=== PATIENT | male | born 1960 | race Caucasian/White ===

== ENCOUNTER 2016-11-27 16:54 | Inpatient (IN) ==
[2016-11-27] MEDS ORDERED: D50W SYRINGE IV ONE ×3 (17:15→23:14)
[2016-11-27] MEDS ORDERED: ASPIRIN PO STA (17:21)
[2016-11-27] MEDS ORDERED: D5W 1,000 ML IV ONE (17:28)
[2016-11-27] MEDS ORDERED: LASIX IV ONE (17:36)
[2016-11-27 17:37] LABS: MANUAL DIFF NEEDED? NO
--- NOTE | 2016-11-27 17:38 | PROVIDER DOCUMENTATION ---
This chart was entered by Pamela Cobian Scribe, acting as scribe for Kiko Lopez MD. HPI-General Adult - General Source: patient, EMS - History of Present Illness -Gen Adult Nature of Presenting Problems: 56 yo M presents to the ER with complaint of low blood sugar and "falling out" last night and this morning. Also complains of SOb x2 days. FSBS upon arrival was 38. Pt states he took metformin this morning but has not eaten anything today. Onset/Duration: reports: 2 days ago Associated Symptoms: reports: shortness of breath, syncope. denies: chest pain - Diabetes Related Context Context: reports: low blood sugar <Kiko Lopez I - Last Filed: 11/27/16 17:37> - General Source: patient <Bob Lindsey - Last Filed: 11/27/16 20:50> - General Chief Complaint: Shortness of Breath Stated Complaint: sob hypoglycemia Time Seen by Provider: 11/27/16 17:19 Allergies/Adverse Reactions: Patient Allergies Allergy/AdvReac Type Severity Reaction Status Date / Time ibuprofen Allergy Severe ANAPHYLAXIS Verified 11/27/16 17:06 venom-honey bee Allergy ANAPHYLAXIS Verified 11/27/16 17:06 [bee venom (honey bee)] Home Medications: Home Medication List Medication Instructions Recorded Confirmed Last Taken Type Cyclobenzaprine [Flexeril] 10 mg PO TID 12/05/12 10/10/16 10/09/16 History Glimepiride [Amaryl] 4 mg PO BID 12/05/12 10/10/16 10/09/16 History Metformin [Glucophage] 1,000 mg PO BID CC 12/05/12 10/10/16 10/09/16 History Omeprazole 40 mg PO DAILY 02/01/14 10/10/16 10/09/16 History Rivaroxaban [Xarelto] 20 mg PO DAILY 02/01/14 10/10/16 10/09/16 History Tamsulosin [Flomax] 0.4 mg PO DAILY 02/01/14 10/10/16 10/09/16 History Carvedilol [Coreg] 25 mg PO Q12H #0 tablet 02/09/14 10/10/16 10/09/16 Rx Diltiazem HCl [Diltiazem 12Hr ER] 120 mg PO DAILY #30 02/09/14 10/10/16 Rx Isosorbide Mononitrate E.r. [Imdur] 30 mg PO DAILY #30 tablet 02/09/14 10/10/16 10/09/16 Rx Losartan [Cozaar] 25 mg PO DAILY #30 tablet 02/09/14 10/10/16 10/09/16 Rx Metolazone [Zaroxolyn] 5 mg PO DAILY@0530 #30 tablet 02/09/14 10/10/16 10/09/16 Rx Spironolactone [Aldactone] 25 mg PO DAILY #0 tablet 02/09/14 10/10/16 10/09/16 Rx Rizatriptan Benzoate [Maxalt [employer] Super[employer]] 10 mg PO DAILY PRN PRN #10 12/30/14 10/10/16 10/09/16 Rx tab.rapdis Fentanyl 1 each TD DIRECTED 09/01/16 10/10/16 10/09/16 History Furosemide [Lasix] 80 mg PO BID 10/10/16 10/10/16 10/09/16 History Potassium Chloride E.r. [Micro-K] 24 meq PO TID 10/10/16 10/10/16 10/09/16 History Review of Systems - Adult - REVIEW OF SYSTEMS - ADULT Constitutional: denies: chills, fever Eyes: reports: no symptoms reported Ears, Nose, Mouth & Throat: reports: no symptoms reported Cardiovascular: denies: chest pain, palpitations Respiratory: reports: shortness of breath. denies: cough, wheezing Gastrointestinal: denies: diarrhea, nausea, vomiting Genitourinary: reports: no symptoms reported Musculoskeletal: reports: no symptoms reported Integumentary: reports: no symptoms reported Neurological: reports: no symptoms reported Psychiatric: reports: no symptoms reported Endocrine: reports: no symptoms reported Hematologic/Lymphatic: reports: no symptoms reported Allergic/Immunologic: reports: no symptoms reported All Other Systems: Reviewed and Negative <Kiko Lopez I - Last Filed: 11/27/16 17:37> - REVIEW OF SYSTEMS - ADULT Constitutional: reports: no symptoms reported <Bob Lindsey - Last Filed: 11/27/16 20:50> Past History - Adult - PAST MEDICAL HISTORY-ADULT Review of Records: reports: Nursing Assessment Review, Medications Reviewed Cardiovascular: reports: A-Fib, CHF, HTN Respiratory: reports: COPD, sleep apnea Musculoskeletal: reports: chronic pain Endocrine/Immune: reports: Diabetes - PRIOR SURGERIES/PROCEDURES Surgical/Procedure History: reports: reviewed, not pertinent - PRIOR HOSPITALIZATIONS Prior Hospitalizations: reports: for similar symptoms - IMMUNIZATION STATUS Childhood Immunizations: See Nurse Assessment Flu Vaccine: See Nurse Assessment <Kiko Lopez I - Last Filed: 11/27/16 17:37> - PAST MEDICAL HISTORY-ADULT Review of Records: reports: Medications Reviewed <Bob Lindsey - Last Filed: 11/27/16 20:50> Physical Exam-General - PHYSICAL EXAM-ADULT Initial Vital Signs Reviewed: Yes - CONSTITUTIONAL General Appearance: alert, obese - EYES Eyes: PERRL/EOMI, pink conjunctivae - HEAD, EARS, NOSE, MOUTH & THROAT HENMT: normocephalic/atraumatic, normal ENT inspection - NECK Neck: supple, normal inspection - RESPIRATORY Respiratory: no respiratory distress, no accessory muscle use, rales, wheezing - CARDIOVASCULAR Cardiovascular: normal peripheral pulses, regular rate, rhythm. negative: no edema - GASTROINTESTINAL (ABDOMEN) Abdominal Exam: normal bowel sounds, non tender, soft - MUSCULOSKELETAL Back Exam: no CVA tenderness, no vertebral tenderness Extremity: normal gait, normal inspection, swelling (+4 pitting edema, anasarca) - SKIN Integumentary: normal color, warm/dry, other (anasarca) - NEUROLOGIC Neurologic: grossly normal, no motor/sensory deficits - PSYCHIATRIC Psych/Mental Status: normal mood/affect, normal thought content, normal thought process, oriented x 3 <Kiko Lopez I - Last Filed: 11/27/16 17:37> - PHYSICAL EXAM-ADULT Initial Vital Signs Reviewed: Yes - CONSTITUTIONAL General Appearance: appears well <Bob Lindsey - Last Filed: 11/27/16 20:50> Progress - PLAN OF CARE/RESULTS Progress/Plan/Lab Results: Vital Signs - 8 hr 11/27/16 17:04 Temperature 98 F Pulse Rate 93 H Respiratory Rate 19 Blood Pressure 121/93 O2 Sat by Pulse Oximetry 100 Orders Category Date Time Status Cardiac Monitoring DIRECTED Care 11/27/16 17:21 Active Oxygen Therapy- ED Nursing DIRECTED Care 11/27/16 17:21 Active Saline Loc NOW Care 11/27/16 17:21 Active CHEST-2 VIEWS [RAD] Stat Exams 11/27/16 17:21 Ordered CBC WITH ELECTRONIC DIFF [HEME] Stat Lab 11/27/16 17:25 Ordered CK PROFILE [SP CHEM] Stat Lab 11/27/16 17:25 Ordered COMPREHENSIVE METABOLIC PANEL [CHEM] Stat Lab 11/27/16 17:25 Ordered MAGNESIUM [CHEM] Stat Lab 11/27/16 17:25 Ordered PRO B-NATRIURETIC PEPTIDE Stat Lab 11/27/16 17:25 Ordered PROTIME WITH INR [COAG] Stat Lab 11/27/16 17:25 Ordered PTT [COAG] Stat Lab 11/27/16 17:25 Ordered TROPONIN T Stat Lab 11/27/16 17:25 Ordered Aspirin Med 11/27/16 17:21 Discontinued 325 mg PO STAT STA Dextrose 5%-Water Inj [D5w] 1,000 ml Med 11/27/16 17:28 Discontinued IV KVO Dextrose 50% Syringe [D50w Syringe] Med 11/27/16 17:19 Discontinued 50 ml IV NOW ONE Dextrose 50% Syringe [D50w Syringe] Med 11/27/16 17:15 Discontinued 50 ml IV ONCE ONE EKG [EKG] Stat Ther 11/27/16 17:21 Ordered Result Diagrams: 11/27/16 17:10 - EKG 1 Time of EKG reading by physician:: 16:59 EKG Read and Signed by:: Kiko Lopez EKG Interpretation (*Must complete 3 of following elements*): Abnormal Rate: 92 Rhythm: atrial fibrillation [place]: normal QRS: LBB MS Interval: normal ST Wave: normal - CHANGE OF SHIFT REPORT (ED Provider) Report Given and Care Transferred to:: Dr. Lindsey Time of Transfer: 18:00 Items Pending: Labs, XRAY Results <Kiko Lopez I - Last Filed: 11/27/16 17:37> - PLAN OF CARE/RESULTS Progress/Plan/Lab Results: Vital Signs - 8 hr 11/27/16 17:04 11/27/16 18:09 11/27/16 19:00 Temperature 98 F Pulse Rate 93 H 84 100 H Respiratory Rate 19 19 18 Blood Pressure 121/93 155/135 117/95 O2 Sat by Pulse Oximetry 100 92 L 99 Laboratory Results - last 24 hr 11/27/16 11/27/16 11/27/16 17:10 17:10 17:10 WBC 9.39 RBC 3.39 L Hgb 8.7 L Hct 28.7 L MCV 84.7 MCH 25.7 L MCHC 30.3 L RDW Std Deviation 14.8 H Plt Count 236 MPV 10.2 Immature Gran % (Auto) 0.4 Neut % (Auto) 72.8 Lymph % (Auto) 14.2 L [place] % (Auto) 8.4 Eos % (Auto) 3.2 Baso % (Auto) 1.0 H Immature Gran # (Auto) 0.04 Neut # (Auto) 6.84 H Lymph # (Auto) 1.33 [place] # (Auto) 0.79 H Eos # (Auto) 0.30 Baso # (Auto) 0.09 PT INR PTT (Actin FS) Sodium 136 Potassium 3.8 Chloride 92 L Carbon Dioxide 29 Anion Gap 15 BUN 33 H Creatinine 1.8 H Estimated GFR/1.73 m2 39 BUN/Creatinine Ratio 18 Glucose 31 L* Calculated Osmolality 275 Calcium 9.9 Magnesium 1.6 Total Bilirubin 0.32 AST 32 ALT 24 Alkaline Phosphatase 115 Creatine Kinase 140 Troponin T Hzt-O-Ocyitensnof Pept 1551 H Total Protein 7.5 Albumin 4.5 Globulin 3.0 Albumin/Globulin Ratio 1.5 11/27/16 11/27/16 17:10 17:10 WBC RBC Hgb Hct MCV MCH MCHC RDW Std Deviation Plt Count MPV Immature Gran % (Auto) Neut % (Auto) Lymph % (Auto) [place] % (Auto) Eos % (Auto) Baso % (Auto) Immature Gran # (Auto) Neut # (Auto) Lymph # (Auto) [place] # (Auto) Eos # (Auto) Baso # (Auto) PT 12.0 H INR 1.13 PTT (Actin FS) 28.5 Sodium Potassium Chloride Carbon Dioxide Anion Gap BUN Creatinine Estimated GFR/1.73 m2 BUN/Creatinine Ratio Glucose Calculated Osmolality Calcium Magnesium Total Bilirubin AST ALT Alkaline Phosphatase Creatine Kinase Troponin T < 0.010 Cnh-J-Jgvksijrscs Pept Total Protein Albumin Globulin Albumin/Globulin Ratio Orders Category Date Time Status Cardiac Monitoring DIRECTED Care 11/27/16 17:21 Active Oxygen Therapy- ED Nursing DIRECTED Care 11/27/16 17:21 Active Saline Loc NOW Care 11/27/16 17:21 Active CHEST-PORTABLE [RAD] Stat Exams 11/27/16 17:21 Completed CBC WITH ELECTRONIC DIFF [HEME] Stat Lab 11/27/16 17:10 Completed CK PROFILE [SP CHEM] Stat Lab 11/27/16 17:10 Completed COMPREHENSIVE METABOLIC PANEL [CHEM] Stat Lab 11/27/16 17:10 Completed MAGNESIUM [CHEM] Stat Lab 11/27/16 17:10 Completed PRO B-NATRIURETIC PEPTIDE Stat Lab 11/27/16 17:10 Completed PROTIME WITH INR [COAG] Stat Lab 11/27/16 17:10 Completed PTT [COAG] Stat Lab 11/27/16 17:10 Completed TROPONIN T Stat Lab 11/27/16 17:10 Completed Aspirin Med 11/27/16 17:21 Discontinued 325 mg PO STAT STA Dextrose 5%-Water Inj [D5w] 1,000 ml Med 11/27/16 17:28 Discontinued IV KVO Dextrose 50% Syringe [D50w Syringe] Med 11/27/16 17:19 Discontinued 50 ml IV NOW ONE Dextrose 50% Syringe [D50w Syringe] Med 11/27/16 17:15 Discontinued 50 ml IV ONCE ONE Furosemide [Lasix] Med 11/27/16 17:36 Discontinued 100 mg IV NOW ONE EKG [EKG] Stat Ther 11/27/16 17:21 Ordered Result Diagrams: 11/27/16 17:10 11/27/16 17:10 - XRAY 1 XRAY Study: Chest Impression: Abnormal XRAY Interpretation: stable cardiomegaly and PVC - CONSULTS/PCP/HOSPITALIST Notification #1 *Consult/PCP/Hospitalist*: [place] Time Discussed: 20:00 Consult Disposition: Will see in ED, Admit <Bob Lindsey - Last Filed: 11/27/16 20:50> Departure <Kiko Lopez I - Last Filed: 11/27/16 17:37> - Departure Date of Disposition Decision: 11/27/16 Time of Disposition Decision: 20:03 Certified Medical Emergency: Emergent - Critical Care Note This patient required my direct & personal management of CC.: No <Bob Lindsey - Last Filed: 11/27/16 20:50> - Departure DIAGNOSIS: Hypoglycemia CHF (congestive heart failure) Qualifiers: Congestive heart failure type: unspecified congestive heart failure type Congestive heart failure chronicity: acute on chronic Qualified Code(s): I50.9 - Heart failure, unspecified Hypertension Qualifiers: Hypertension type: essential hypertension Qualified Code(s): I10 - Essential ( primary) hypertension Disposition: ADMITTED INPATIENT 09 Condition: Good Referrals and Follow-Ups: Yusef Gonzalez MD [Primary Care Provider] - This chart was documented by the indicated scribe, (Pamela Cobian Scribe) and accurately reflects the services I performed and decisions made by Jessica joseph Christophe I, MD, as attested by the provider's signature.
[2016-11-27 17:43] LABS: EOS% 3.2 % (0.0-10.0); HEMATOCRIT 28.7 % (42.0-52.0); HEMOGLOBIN 8.7 g/dL (14.0-18.0); IMM GRAN# 0.04 X1000 (0.0-0.04); IMM GRAN% 0.4 % (0.0-0.5); LYMPH# 1.33 X1000 (1.2-3.4); LYMPH% 14.2 % (20.5-51.1); MCH 25.7 PG (27-31); MCHC 30.3 g/dL (33-37); MCV 84.7 FL (81-99); MONO# 0.79 X1000 (0.11-0.59); MONO% 8.4 % (1.7-9.3); MPV 10.2 FL (7.4-10.4); NEUT% 72.8 % (42.2-75.2); PLT 236 X1000 (130-400); RBC 3.39 XMIL (4.7-6.1)
[2016-11-27 17:53] LABS: INR 1.13; PTT 28.5 Seconds (22.0-36.0)
--- NOTE | 2016-11-27 18:16 | Diag Imaging Result Doc PS360 ---
CHEST-PORTABLE - 11/27/2016 INDICATION: CP TECHNIQUE: COMPARISON: 10/10/2016 FINDINGS: Stable significant cardiomegaly and pulmonary vascular congestion. No definite infiltrates or edema. IMPRESSION: Stable severe cardiomegaly and pulmonary vascular congestion. Electronically signed by Deepak Rivera 11/27/2016 6:14 PM
[2016-11-27 18:21] LABS: ALBUMIN 4.5 g/dL (3.5-5.0); CALCIUM 9.9 mg/dL (8.8-10.2); MAGNESIUM 1.6 mg/dL (1.5-2.7); POTASSIUM 3.8 mmol/L (3.5-5.1); TOTAL BILIRUBIN 0.32 mg/dL (0.20-1.00); TOTAL PROTEIN 7.5 g/dL (6.3-8.3)
[2016-11-27 22:50] LABS: URINE MICRO REVIEW NEEDED? NO; URINE SOURCE CATH
--- NOTE | 2016-11-27 22:51 | HISTORY AND PHYSICAL ---
Patient of Dr. Gonzalez. REASON FOR ADMISSION: A 2-day history of worsening dyspnea. HISTORY OF PRESENT ILLNESS: Mr. Silvana Alarcon is a 56-year-old morbidly obese man patient past medical history of chronic atrial fibrillation, heart failure with preserved ejection fraction, hypertensive heart disease, type 2 diabetes, obstructive sleep apnea, probable atrial fibrillation BPH who comes in today complaining of 2-day history of worsening shortness of breath with 1-day history of orthopnea. He also complains of persistent cough over the last couple of days and a 3-day history of sore throat with odynophagia. No fever, no chills. He states that he has had chronic lower extremity swelling but this has not gotten worse but has noticed that his abdomen has become more and more distended with cutaneous edema. He denies any chest pain or palpitations or lightheadedness. He denies any calf pain. He denies any change in his medications. He denies any use of NSAIDs and says has been compliant with his diet. REVIEW OF SYSTEMS: A 12 system is negative. Positive findings noted above. No additional upper respiratory symptoms. No fever or chills. No altered bowel movements. He does admit however to having genitourinary discomfort i.e. hesitancy and difficulty straining his urine and eye says he seen Dr. Guerrero for this. ALLERGIES: He is allergic to ibuprofen . HOME MEDICATION: List not updated yet but he was taking Coreg 25 mg q.12, Flexeril 10 mg t.i.d., Cardizem 120 mg daily, fentanyl patch q.72, Lasix 80 mg b.i.d., Amaryl 4 mg b.i.d., Imdur 30 mg daily, losartan 25 mg daily, metformin 1000 mg b.i.d., Zaroxolyn 5 mg daily, omeprazole 40 mg daily, potassium 20 mEq t.i.d., Xarelto 20 mg daily, Maxalt 10 mg daily, Aldactone 25 mg daily, Flomax 0.4 mg daily. SURGICAL HISTORY: Has had 5 knee surgeries, had tonsillectomy, septoplasty and right Achilles tendon repair. PAST MEDICAL HISTORY: See above including atrial fibrillation. FAMILY HISTORY: Notable for diabetes, prostate cancer, bladder cancer, end- stage kidney disease in the first-degree relatives, coronary artery disease and strokes. SOCIAL HISTORY: Lives with a friend. Has no children. Used to work for [employer] and he says he only drinks maybe a couple of beers a week. No smoking, illicit drug use . LAB WORK: EKG shows atrial fibrillation, left bundle branch block. White count 9000, hemoglobin and hematocrit 8 and 27, platelets 236,000, normal differential. Chemistry BUN 33, creatinine 1.8, baseline 1.5, glucose 31. Troponin negative, proBNP 1500. PTT is normal. Chest x-ray shows cardiomegaly with increased vascular markings. PHYSICAL EXAMINATION: VITAL SIGNS: Morbidly obese male, with a blood pressure 144/110, heart rate is 29 temperature is 98, pulse rate is 109. GENERAL: He is alert and oriented to person, time with normal mood and affect. HEENT: Head is normocephalic, atraumatic. PERRLA, EOMI intact not pale, oropharynx exam shows hyperemic erythematous posterior pharyngeal wall with no exudates. 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 NECK: Short and thick. No JVD could be appreciated. No bruit or thyromegaly. No hepatojugular reflux visualized. CHEST: Surprisingly clear to auscultation with decreased entry in the bases. CARDIOVASCULAR: 1st, 2nd heart sounds heard. No gallops, murmurs, rubs. Rhythm is irregular. ABDOMEN: Protuberant, soft with superficial pitting subcutaneous edema on the anterior abdominal wall. No mass or megaly could be appreciated and bowel sounds are hypoactive. RECTAL: Exam deferred. : The patient has swollen scrotum with 2 chronic ulcers which are non necrotic. He also has some significant scrotal swelling which is consistent with possible scrotal hydrocele. EXTREMITIES: Patient has findings consistent in the lower extremity with chronic venous insufficiency. There are areas of significant hyperpigmentation and induration of the shins with 1+ pitting edema. No erythema or warmth noted. Pulses distally lower extremities are symmetrical but diminished compared to the distal pulses of the upper extremity. No clubbing or peripheral cyanosis. Motor system no focal deficits. SKIN: See above but otherwise unremarkable. MUSCULOSKELETAL: Exam is grossly normal. ASSESSMENT: 1. Acute diastolic heart failure. 2. Atrial fibrillation. 3. Hypoglycemia. 4. Anemia of chronic inflammation. 5. Type 2 diabetes with chronic kidney disease. 6. Chronic kidney disease stage 3. 7. Morbid obesity with sleep apnea. 8. Prostatism ? benign prostatic hypertrophy . 9. Hydrocele. 10. Scrotal ulcer. PLAN: At this time will continue the aggressive diuresis. The patient will need to ascertain if patient truly compliant with medication and BiPAP machine. Will consider at discharge maybe increasing dose to 80 mg 3 times a day or at very least 100 mg b.i.d. Echocardiogram will be ordered to see if patient's LV function has been altered. Continue with anticoagulation with Xarelto and rate control with Coreg. I held Cardizem because patient's heart rate was in the 60s. BMP should be followed closely during the process of the patient's process of diuresis. Check A1c and consider discontinuing or decrease Amaryl if patient's A1c is on the low side due to the fact that he had profound hypoglycemia on admission. Also another reason why we need to cut the dose because of patient's renal function which will decreased excretion of Amaryl. Ordered strep screen on patient based on his clinical picture and started patient on penicillin V. If is negative can discontinue penicillin V further because of the size. DVT prophylaxis achieved by using Xarelto. cc: MD Dr. Carlos Ga
[2016-11-27 23:19] LABS: BILIRUBIN URINE NEGATIVE (NEGATIVE); BLOOD URINE NEGATIVE (NEGATIVE); COLOR STRAW; GLUCOSE URINE NEGATIVE (NEGATIVE); LEUKOCYTES URINE NEGATIVE (NEGATIVE); NITRITE URINE NEGATIVE (NEGATIVE); PH URINE 5.5; PROTEIN URINE NEGATIVE (NEGATIVE); SP GRAVITY URINE 1.005; TURBIDITY URINE CLEAR (CLEAR); UR EPITHELIAL CELLS <10 /HPF (<10); URINE BACTERIA NEGATIVE /HPF; URINE RBC <10 /HPF (<10); URINE WBC <10 /HPF (<10); UROBILINOGEN URINE NORMAL (NORMAL)
[2016-11-27] MEDS ORDERED: COREG PO SCH (23:50)
[2016-11-27] MEDS ORDERED: ZOFRAN IV PRN (23:50)
[2016-11-27] MEDS ORDERED: LASIX IV SCH (23:50)
[2016-11-28] MEDS ORDERED: ZOFRAN IV PRN (00:01)
[2016-11-28] MEDS: COREG PO SCH ×3 (00:42→20:15)
[2016-11-28] MEDS: LASIX IV SCH ×2 (00:42→11:48)
[2016-11-28 03:56] LABS: MANUAL DIFF NEEDED? NO
[2016-11-28 04:01] LABS: BASO% 0.7 % (0.0-0.8); EOS# 0.37 X1000 (0.0-0.7); HEMATOCRIT 28.9 % (42.0-52.0); HEMOGLOBIN 8.8 g/dL (14.0-18.0); IMM GRAN# 0.03 X1000 (0.0-0.04); IMM GRAN% 0.3 % (0.0-0.5); LYMPH% 16.4 % (20.5-51.1); MCH 26.1 PG (27-31); MCHC 30.4 g/dL (33-37); MCV 85.8 FL (81-99); MONO# 0.91 X1000 (0.11-0.59); MONO% 9.9 % (1.7-9.3); MPV 9.4 FL (7.4-10.4); NEUT% 68.7 % (42.2-75.2); PLT 235 X1000 (130-400); RBC 3.37 XMIL (4.7-6.1)
[2016-11-28] MEDS ORDERED: ZAROXOLYN PO SCH (05:30)
[2016-11-28 05:57] LABS: CALCIUM 9.3 mg/dL (8.8-10.2); MAGNESIUM 1.7 mg/dL (1.5-2.7)
[2016-11-28] MEDS: ZAROXOLYN PO SCH (06:29)
[2016-11-28] MEDS: HUMALOG SUBQ SCH ×4 (06:33→20:14)
[2016-11-28] MEDS ORDERED: HUMALOG SUBQ SCH (07:00)
[2016-11-28] MEDS ORDERED: XARELTO PO SCH ×2 (08:00)
[2016-11-28] MEDS: COZAAR PO SCH (08:27)
[2016-11-28] MEDS: IMDUR PO SCH (08:27)
[2016-11-28] MEDS: FLOMAX PO SCH (08:27)
[2016-11-28] MEDS: PEN VK PO SCH ×3 (08:28→17:16)
[2016-11-28] MEDS: MICRO-K PO SCH ×3 (08:28→17:16)
[2016-11-28] MEDS: ALDACTONE PO SCH (08:28)
--- NOTE | 2016-11-28 08:47 | Diag Imaging Result Doc PS360 ---
CHEST-2 VIEWS - 11/28/2016 INDICATION: Heart Failure TECHNIQUE: COMPARISON: 11/27/2016 FINDINGS: Stable cardiomegaly and significant pulmonary vascular congestion. No definite infiltrates or edema. IMPRESSION: No change from prior. Electronically signed by Deepak Rivera 11/28/2016 8:45 AM
[2016-11-28] MEDS ORDERED: PRILOSEC PO SCH ×2 (09:00)
[2016-11-28] MEDS ORDERED: IMDUR PO SCH (09:00)
[2016-11-28] MEDS ORDERED: FLOMAX PO SCH (09:00)
[2016-11-28] MEDS ORDERED: PEN VK PO SCH (09:00)
[2016-11-28] MEDS ORDERED: COZAAR PO SCH (09:00)
[2016-11-28] MEDS ORDERED: ALDACTONE PO SCH (09:00)
[2016-11-28 10:31] LABS: RETIC% 1.46 % (0.8-2.1); RETIC-HE 27.3 PG (28.2-36.6)
[2016-11-28 10:43] LABS: IRON SATURATION 6 %; TIBC 361 ug/dL; TOTAL IRON 21 ug/dL (53-167); UNBOUND IRON 340 ug/dL (112-346)
[2016-11-28 11:07] LABS: FERRITIN 41 ng/mL (30-400)
--- NOTE | 2016-11-28 11:48 | PROGRESS NOTE ---
DATE: 11/28/2016 SUBJECTIVE: A 56-year-old, white gentleman admitted with shortness of breath which was progressively getting worse, chest congestion, weight gain, increasing leg swelling, decreased exercise tolerance. The patient does have a history of atrial fibrillation. The patient also had some cough. No high-grade fever or chills. The patient does have diabetes. Lately, her blood sugar was dropping but the patient was not able to pinpoint if her episodes were due to hypoglycemia. Patient also had bleeding per rectum going on for the last many months. He had upper and lower GI endoscopy done about a year ago. He was recommended to have followup endoscopy but patient did not go. Oral intake is fair. The patient claims he had scrotal ulcer due to staphylococcus, requiring prolonged IV antibiotics. The patient does have morbid obesity. Significant problem with the left knee which limits his ambulation. No typical chest pain. The patient does get short of breath with exertion. No nausea or vomiting. He does get palpitations, shortness of breath with exertion. The patient does have a history suggestive of obstructive uropathy. Admission history and physical noted. PAST MEDICAL HISTORY: Significant for morbid obesity, sleep apnea, scrotal ulcer, anemia, osteoarthritis, surgery on his left knee multiple times, hypertension, gastritis and reflux disease, migraine headaches, chronic pain, diabetes mellitus. PHYSICAL EXAMINATION: General: Middle-aged, white gentleman, morbidly obese, in no acute distress. Vital Signs: Blood pressure 129/80, pulse 78, respirations 13, temperature 98.2 degrees. Skin: Normal turgor. No rash or petechiae. HEENT: Head atraumatic, normocephalic. [place] conjunctivae. Anicteric sclerae. Extraocular muscle movement normal. Fundus cannot be penetrated. Good oral hygiene. No tonsillopharyngeal congestion or exudate. Ears and nose benign. Neck: Supple. No JVD, thyromegaly, or lymphadenopathy. Chest: Bilateral good air entry present. Bibasilar crepitations. Cardiovascular: S1 and S2 heard. A 2/6 systolic murmur at the apex. Abdomen: Soft, globular. Bowel sounds present. Extremities: No cyanosis, clubbing. No acute DVT. BARREL DRUM CUTTER: Alert, awake. Answering questions fairly well. Genitalia: The patient does have superficial ulcer on the scrotum, minimal swelling of the scrotum, evidence of stasis dermatitis in both the lower limbs. LABORATORY DATA: Hemoglobin 8.8, hematocrit 28.9, WBC count 9.17, platelet count 235,000. Patient's hemoglobin in August was around 11. PT/INR 1.13, PTT 28.5. BUN 34, creatinine 1.8. Admission blood sugar was 31. The patient was on Amaryl which was discontinued. Cardiac isoenzymes negative. ProBNP results reviewed. Urinalysis result noted. Chest x-ray did reveal pulmonary congestion. IMPRESSION: 1. The patient is admitted with shortness of breath which is multifactorial. 2. Uncompensated diastolic heart failure. 3. The patient does have anemia, most likely of chronic disease due to deterioration of his renal function, also due to blood loss. The patient does have rectal bleed almost daily for last many months, according to patient. 4. Morbid obesity. 5. Sleep apnea. 6. Osteoarthritis. 7. Diabetes mellitus and hypoglycemia. 8. Hypertension. PLAN: I am going to do anemia workup. Diuresis. Monitor renal function. We already discontinued his Amaryl. Check appropriate labs. Close observation. Overall plan discussed with the patient. He is in agreement. We will continue BiPAP as per home settings. Monitor for hypoglycemia. cc: MD Yusef Coulter MD
--- NOTE | 2016-11-28 12:52 | ECHO REPORT ---
ORDER DATE: 11/28/2016 INTERPRETING PHYSICIAN: Dr. Kam REQUESTING PHYSICIAN: CLINICAL INDICATIONS: This is a 56-year-old female with CHF, morbid obesity, weighs 450 pounds. Definity was used. This is a contrast study. M-MODE MEASUREMENTS: Right ventricle: 4.8 cm. Left ventricle end diastole: 6.1 cm. Left ventricle end systole: 4.3 cm. Posterior wall: 1.2 cm. Interventricular septum: 1.2 cm. Left atrium: 5.5 cm. Aortic root: 3.5 cm. SUMMARY OF 2-DIMENSIONAL IMAGIN. The study was done with intravenous administration of Definity. 2. The left ventricular chamber was reasonably well visualized. It shows generally preserved function. 3. The right ventricle appears to be enlarged and hypokinetic. 4. Aortic valve appears to be grossly within normal range. Doppler pattern appears to be grossly normal. 5. Mitral valve also appears to be grossly normal. 6. The pulmonic valve is suboptimally visualized. No definite major abnormalities in the Doppler pattern. 7. The tricuspid valve shows some regurgitation. Again, the study is very difficult in spite of Definity. 8. There is no pericardial effusion, mass or thrombus. CONCLUSIONS: 1. This study was done with injection of Definity. 2. The left ventricular ejection fraction appears to be preserved. It is grossly estimated to be in the normal range of 55% to 60%. 3. The right ventricle is moderately to significantly enlarged, questionable hypokinesis. 4. There is mild degree of pulmonary hypertension. 5. The left ventricular diastolic function is not appropriately evaluated in this study. 6. The study was very difficult. Clinical correlation is recommended. cc: MD Clarice Reed MD Stephen W. Harbin, MD
[2016-11-28] MEDS ORDERED: DURAGESIC 25 MICROGM/HR PATCH TD SCH (20:15)
[2016-11-29] MEDS: LASIX IV SCH ×3 (00:41→23:18)
[2016-11-29] MEDS ORDERED: NEOSPORIN OINTMENT TUBE TOP PRN (00:56)
[2016-11-29 05:12] LABS: MANUAL DIFF NEEDED? NO
[2016-11-29 05:18] LABS: BASO% 1.5 % (0.0-0.8); EOS# 0.56 X1000 (0.0-0.7); EOS% 6.3 % (0.0-10.0); HEMATOCRIT 28.7 % (42.0-52.0); HEMOGLOBIN 8.8 g/dL (14.0-18.0); IMM GRAN# 0.04 X1000 (0.0-0.04); IMM GRAN% 0.4 % (0.0-0.5); LYMPH# 2.13 X1000 (1.2-3.4); LYMPH% 23.8 % (20.5-51.1); MCHC 30.7 g/dL (33-37); MCV 84.7 FL (81-99); MONO# 0.93 X1000 (0.11-0.59); MONO% 10.4 % (1.7-9.3); NEUT% 57.6 % (42.2-75.2); PLT 252 X1000 (130-400); RBC 3.39 XMIL (4.7-6.1)
[2016-11-29 05:37] LABS: ALBUMIN 4.2 g/dL (3.5-5.0); CALCIUM 9.5 mg/dL (8.8-10.2); MAGNESIUM 1.8 mg/dL (1.5-2.7); POTASSIUM 3.9 mmol/L (3.5-5.1); TOTAL BILIRUBIN 0.45 mg/dL (0.20-1.00); TOTAL PROTEIN 7.1 g/dL (6.3-8.3)
--- NOTE | 2016-11-29 06:16 | EKG Report ---
Test Performed on : 11/27/2016 4:59:46 PM Test Reason : CP/Re-Ordered Blood Pressure : / mmHG Vent. Rate : 092 BPM Atrial Rate : 535 BPM P-R Int : 000 ms QRS Dur : 142 ms QT Int : 392 ms P-R-T Axes : 000 -57 081 degrees QTc Int : 484 ms Atrial fibrillation. Left bundle branch block Abnormal ECG When compared with ECG of 30-DEC-2014 04:32, T wave inversion now evident in Lateral leads Unconfirmed Result
[2016-11-29] MEDS: ZAROXOLYN PO SCH (06:17)
[2016-11-29] MEDS: HUMALOG SUBQ SCH ×4 (06:17→20:37)
--- NOTE | 2016-11-29 07:44 | PROGRESS NOTE ---
DATE: 11/29/2016 SUBJECTIVE: Patient is stable. Complains of back pain and complains his back is hurting in his bed. He desired a different bed. Does admit, on review of systems, to hematochezia over the past [address] 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 OBJECTIVE: Vital Signs: Afebrile. Pulse 95, blood pressure 132/52. O2 saturation on room air 95-98%. Cardiovascular: Irregularly irregular. Lungs: Fairly clear. Abdomen: Extremely morbidly obese. Some ascites is apparent of his abdomen and mild to moderate of the scrotum. Extremities: There is 1 to 2+ lower extremity edema. Morbid obesity prominent. LABS: Sodium 139, potassium 3.9, chloride 92, CO2 35, BUN 34, creatinine 1.6. Blood sugar this morning 175 to 200. White count 8.96, hemoglobin 8.8, platelets 252,000, neutrophils 57, lymphocytes 24, monocytes 10. Echocardiogram done yesterday reveals EF of 55-60%. Right ventricle moderately to significantly enlarged. Possible hypokinesis. Mild pulmonary hypertension. Difficult study. Chest x-ray yesterday shows pulmonary vascular congestion, stable cardiomegaly. No definite infiltrates. No edema. ASSESSMENT: 1. Acute diastolic congestive heart failure on chronic diastolic congestive heart failure. 2. Chronic atrial fibrillation. Patient says he has not been on Xarelto the past 6 months, as he had stopped due to hematochezia, 3. Hematochezia. 4. Iron deficiency anemia. 5. Hypoglycemia. 6. Renal insufficiency, acute on chronic. 7. Type 2 diabetes mellitus. 8. Morbid obesity. 9. Sleep apnea. 10. History of a scrotal ulcerations, followed by lukas Romeo. 11. Chronic back pain on chronic pain medications per pain clinic in [place]. PLAN: Continue essentially his home medicines with Coreg, Lasix, Zaroxolyn. We are having him on sliding scale insulin. Holding his metformin and Amaryl. Will ask Dr. Farmer to see the patient in consultation due to the anemia/hematochezia. Continue him on PPI. Hold his anticoagulations at this point due to the hematochezia. cc: Yusef Gonzalez MD
[2016-11-29] MEDS: PEN VK PO SCH ×3 (09:01→16:36)
[2016-11-29] MEDS: COREG PO SCH ×2 (09:02→20:36)
[2016-11-29] MEDS: IMDUR PO SCH (09:02)
[2016-11-29] MEDS: PROTONIX IV SCH (09:02)
[2016-11-29] MEDS: ALDACTONE PO SCH (09:02)
[2016-11-29] MEDS: FLOMAX PO SCH (09:02)
[2016-11-29] MEDS: SODIUM CHLORIDE 0.9% INJ SCH (09:02)
[2016-11-29] MEDS: MICRO-K PO SCH ×3 (09:02→16:36)
[2016-11-29] MEDS: COZAAR PO SCH (09:02)
[2016-11-30 05:25] LABS: HEMATOCRIT 29.8 % (42.0-52.0); HEMOGLOBIN 9.3 g/dL (14.0-18.0); MCHC 31.2 g/dL (33-37); MCV 83.2 FL (81-99); RBC 3.58 XMIL (4.7-6.1)
[2016-11-30 05:59] LABS: CALCIUM 9.9 mg/dL (8.8-10.2); POTASSIUM 3.6 mmol/L (3.5-5.1)
[2016-11-30] MEDS: ZAROXOLYN PO SCH (06:13)
[2016-11-30] MEDS: HUMALOG SUBQ SCH ×4 (06:14→21:48)
--- NOTE | 2016-11-30 06:57 | CONSULTATION ---
DATE OF CONSULTATION: 11/29/2016 REFERRING PHYSICIAN: Yusef Gonzalez M.D. PRIMARY WOOD CRAFTSMAN: Dawson Farmer M.D. INDICATION FOR CONSULTATION: Hematochezia. HISTORY OF PRESENT ILLNESS: The patient is a 56-year-old white male who has been followed by Dr. Dawson Farmer in the past. He presented on 11/27/2016 with dyspnea. He was found to have congestive heart failure and probable COPD exacerbation. In his history, he has had recurrent hematochezia. GI was consulted for further evaluation. He has been previously followed by Dr. Dawson Farmer. The patient states that he would like to wait to see Dr. Farmer to discuss "male- type issues." Therefore, I will defer this consultation to Dr. Dawson Farmer , who will return in the morning, for further management of his care. cc: MD Yusef Bernstein MD Khurshid Yousuf, MD MTDD
[2016-11-30] MEDS: COREG PO SCH ×2 (09:13→21:48)
[2016-11-30] MEDS: COZAAR PO SCH (09:13)
[2016-11-30] MEDS: ALDACTONE PO SCH (09:13)
[2016-11-30] MEDS: PROTONIX IV SCH (09:13)
[2016-11-30] MEDS: FLOMAX PO SCH (09:13)
[2016-11-30] MEDS: IMDUR PO SCH (09:13)
[2016-11-30] MEDS: MICRO-K PO SCH ×3 (09:14→16:59)
[2016-11-30] MEDS: PEN VK PO SCH ×3 (09:14→16:59)
[2016-11-30] MEDS: LASIX IV SCH ×2 (11:33→23:23)
--- NOTE | 2016-11-30 13:23 | PROGRESS NOTE ---
DATE: 11/30/2016 SUBJECTIVE: The patient complains of back pain. Says his bed is not doing well in regard to his back. We had put in a consult for air bed yesterday but that has not been procured to this point. OBJECTIVE: T-max 99.8 degrees, pulse 92, respirations 20-24, blood pressure 141/78, O2 saturation room air 97%. Weight 482 pounds. General: Morbidly obese, white male, lying back in a recliner. He has Simpson catheter in. CV: Irregularly irregular. Lungs: Fairly clear. Abdomen: Some ascites noted, scrotal edema is moderate, 1 to 2+ lower extremity edema. Neuro: Nonfocal. Sodium is 137, potassium 3.6, chloride 89, CO2 35, BUN 32, creatinine 1.6. Blood sugars ranging 200-350. White count 7.9, hemoglobin 9.3, platelets 267,000. Iron level 23. I and Os show 760 in, 7700 mL out. ASSESSMENT: 1. Acute diastolic CHF on chronic diastolic congestive heart failure. 2. Chronic atrial fibrillation not on anticoagulation due to the hematochezia. 3. Hematochezia. 4. Iron deficiency anemia. 5. Type 2 diabetes mellitus. 6. Renal insufficiency acute on chronic. 7. Morbid obesity. 8. Sleep apnea. 9. History of scrotal ulcerations followed by Dr. Greer. 10. Chronic back pain on chronic pain medications per pain clinic in [place]. PLAN: Continue Coreg, Lasix, Zaroxolyn and diuresis as we are doing with potassium supplementation which is so far doing well. We will resume some Amaryl and continue SSI. Dr. Farmer is going to be seeing the patient for evaluation of anemia. Monitor renal status. cc: Yusef Gonzalez MD
[2016-11-30] MEDS: AMARYL PO SCH (16:58)
--- NOTE | 2016-11-30 19:16 | CONSULTATION ---
DATE OF CONSULTATION: 11/30/2016 REASON FOR CONSULTATION: Rectal bleeding, anemia. HISTORY OF PRESENT ILLNESS: This is a 56-year-old white male who reports increasing dyspnea over the last several days. He has had a cough with a sore throat. He has had lower extremity swelling. He is admitted for CHF exacerbation. He reports issues with rectal bleeding off and on for months. He was last seen in our office in 2014, He was seen then also for anemia and rectal bleeding. His bleeding had improved at the time. He was actually scheduled for a colonoscopy but he canceled the procedure because of other health problems. His last colonoscopy was in 2011 that showed diverticulosis and friable anal canal. He was also having rectal bleeding at that time. His last EGD was in 2013 that showed hyperplastic gastric polyp. He was recommended to have a followup EGD in 1 year which should have been in 2014. He states he has been off of Xarelto for over 6 months. PAST MEDICAL HISTORY: For chronic atrial fibrillation, congestive heart failure , hypertension, type 2 diabetes, obstructive sleep apnea, morbid obesity. PAST SURGICAL HISTORY: Knee surgeries, tonsillectomy, septoplasty, right Achilles tendon repair. ALLERGIES: To ibuprofen causing anaphylaxis, venom honey bee causing anaphylaxis. HOME MEDICATIONS: Fentanyl 25 mcg patch every 72 hours, Flomax 0.4 mg daily, Aldactone 25 mg daily, Maxalt 10 mg as needed, Xarelto which patient states he has not been taking, potassium 24 mEq 3 times a day, omeprazole 40 mg daily, Zaroxolyn 5 mg daily, Glucophage 1000 mg twice daily, Cozaar 25 mg daily, Imdur 30 mg daily, Amaryl 4 mg twice daily, Lasix 80 mg twice daily, diltiazem 120 mg daily, Flexeril 10 mg 3 times a day, Coreg 25 mg every 12 hours. SOCIAL HISTORY: No children, used to work at the [employer] department. Reports occasional alcohol use. No reported tobacco use. REVIEW OF SYSTEMS: Per HPI. PHYSICAL EXAM: Vital Signs: Temperature 99.2 degrees, pulse 95, respirations 16, blood pressure 118/74. General: Patient is awake, alert, oriented to person, place, and time in no acute distress. He is sitting up in a chair. HEENT: Normocephalic, atraumatic. Pupils equal, round, reactive to light. Sclerae nonicteric. Cardiovascular: Irregular rhythm. History of atrial fibrillation. Abdomen: Morbidly obese. No noted tenderness. : He has a history of scrotal edema and ulcers. Scrotum was not examined today. Extremities: With bilateral lower extremity edema and darkened pigmentation to lower bilateral legs. DIAGNOSTIC RESULTS: Laboratory. Hematology. White count 7.93, hemoglobin 9.3 , hematocrit 29.8, MCV 83.2, platelets 267,000. Chemistry. Sodium 137, potassium 3.6, chloride 89 , CO2 35, BUN 32, creatinine 1.6, glucose 241. On admission his glucose was 31. Total bilirubin 0.45, AST 28, ALT 23, alkaline phosphatase 110, iron 23, TIBC 361, percent saturation 6, ferritin 41. ASSESSMENT AND PLAN: 1. Congestive heart failure exacerbation. Continue supportive care, diuretics. 2. Atrial fibrillation. 3. Rectal bleeding. This has been ongoing dating back to 2011. Last colonoscopy was in 2011 that showed diverticulosis and friable anal canal. Patient does report history of constipation versus diarrhea. He has a bowel movement once to twice a day. Will continue to follow. He does need a colonoscopy. He was actually planned to have that in 2014 but he had to cancel due to other health problems. He has a history of gastric polyps. May proceed with EGD and colonoscopy once patient is able to go through colon prep and be sedated. We will continue to follow and further plans will be made according to his progress while in the hospital. Further plans will be made as needed. I have discussed this case with Dr. Farmer. Thank you for this consultation. Dictated by SB Urbano for Dawson Farmer MD cc: SB Hermosillo MD Stephen W. Harbin, MD [facility]
[2016-12-01 05:55] LABS: HEMATOCRIT 31.5 % (42.0-52.0); HEMOGLOBIN 9.7 g/dL (14.0-18.0); MCH 26.3 PG (27-31); MCHC 30.8 g/dL (33-37); MCV 85.4 FL (81-99); MPV 9.9 FL (7.4-10.4); RBC 3.69 XMIL (4.7-6.1)
[2016-12-01] MEDS: HUMALOG SUBQ SCH ×4 (06:11→21:13)
[2016-12-01] MEDS: ZAROXOLYN PO SCH (06:11)
[2016-12-01 06:20] LABS: CALCIUM 9.7 mg/dL (8.8-10.2); POTASSIUM 3.8 mmol/L (3.5-5.1)
--- NOTE | 2016-12-01 08:48 | PROGRESS NOTE ---
DATE: 12/01/2016 SUBJECTIVE: Patient says he is having resumption of pain in his back. He has been off his Neurontin and Flexeril. He feels like his pain patch is wearing out. Otherwise, he has slept some better on the air bed that was provided. He does state he feels like he is seeing less edema. OBJECTIVE: Vital Signs: Afebrile, pulse 90, respirations 22, blood pressure 132/78, O2 saturation on room air of 91-94%. Cardiovascular: Irregularly irregular. Lungs: CTA. Abdomen: Very protuberant, large. Seems to be mild decreasing anasarca. Extremities: Lower extremities with less edema. Some discoloration over the mid to lower legs is noted, chronic. Is and Os: Show 1080 in, 7450 out. Labs: White count 7.87, hemoglobin 9.7, platelets 251,000. Sodium 139, potassium 3.8, chloride 90, CO2 36, BUN 32, creatinine 1.7, glucose in the low 200s primarily. ASSESSMENT: 1. Congestive heart failure, acute on chronic, diastolic. 2. Chronic atrial fibrillation, not on anticoagulation due to ongoing hematochezia. 3. Hematochezia. 4. Iron deficiency anemia, stable. 5. Type 2 diabetes mellitus. 6. Acute on chronic renal insufficiency. 7. Morbid obesity. 8. Sleep apnea. 9. History of scrotal ulcerations. Followed by Dr. Greer. 10. Chronic back pain, on chronic pain medications per Pain Clinic in [place]. PLAN: We will reduce his Lasix slightly to 100 mg IV every 24 hours. Continue Zaroxolyn and Aldactone. Continue Coreg. Continue potassium supplementation, monitoring that closely. We are resuming his Amaryl this morning at a low-dose. We will continue SSI. Dr. Farmer is following and plans on endoscopies once the patient is able to tolerate any kind of sedation. We will resume his Neurontin and Flexeril, and change out his pain patch of fentanyl, and monitor his pain level. Continue slow diuresis, slowing that down gradually. cc: Yusef Gonzalez MD
[2016-12-01] MEDS ORDERED: DURAGESIC 25 MICROGM/HR PATCH TD SCH ×2 (09:00→20:00)
[2016-12-01] MEDS: COREG PO SCH ×2 (10:51→21:13)
[2016-12-01] MEDS: FLOMAX PO SCH (10:51)
[2016-12-01] MEDS: PROTONIX IV SCH (10:51)
[2016-12-01] MEDS: FLEXERIL PO SCH ×3 (10:51→17:41)
[2016-12-01] MEDS: ALDACTONE PO SCH (10:51)
[2016-12-01] MEDS: LASIX IV SCH (10:51)
[2016-12-01] MEDS: PEN VK PO SCH ×3 (10:52→17:41)
[2016-12-01] MEDS: COZAAR PO SCH (10:52)
[2016-12-01] MEDS: NEURONTIN PO SCH ×4 (10:52→21:52)
[2016-12-01] MEDS: IMDUR PO SCH (10:53)
[2016-12-01] MEDS: AMARYL PO SCH ×2 (10:57→17:41)
[2016-12-01] MEDS: DURAGESIC 25 MICROGM/HR PATCH TD SCH (13:46)
[2016-12-01] MEDS: MICRO-K PO SCH ×3 (13:47→17:41)
--- NOTE | 2016-12-01 14:26 | PROGRESS NOTE ---
DATE: 12/01/2016 SUBJECTIVE: Patient states he is having back pain. He is lying in the bed. He has got an air mattress today. He states he feels like his pain patch is wearing out. He states it is due to be changed today or tomorrow. He did report having a bowel movement with some mild blood when he wiped. OBJECTIVE: Vital Signs: Temperature 99.8 degrees, pulse 80, respirations 20, blood pressure 123/60. DIAGNOSTIC RESULTS: Laboratory/Hematology: White count 7.87, hemoglobin 9.7, hematocrit 31.5, MCV 85.4, platelets 251,000. Chemistry: Sodium 139, potassium 3.8, chloride 90, CO2 of 36. BUN 32, creatinine 1.7, glucose 193. ASSESSMENT AND PLAN: 1. Chronic heart failure exacerbation. 2. Chronic atrial fibrillation. 3. Hematochezia. 4. Iron-deficiency anemia. 5. Chronic back pain. 6. Morbid obesity. 7. Sleep apnea. 8. Chronic renal insufficiency. PLAN: Continue supportive care. Continue to monitor hemoglobin and hematocrit. Monitor for active bleeding. We will continue to follow, and he will most likely need a colonoscopy once he is stabilized and can go through colon prep and sedation. This may need to be done as an outpatient. We will continue to follow and further plans will be made as needed. I have discussed this case with Dr. Farmer. Dictated by SB Urbano for Dawson Farmer MD cc: SB Hermosillo MD Stephen W. Harbin, MD
[2016-12-02 05:51] LABS: POTASSIUM 3.6 mmol/L (3.5-5.1)
[2016-12-02] MEDS: ZAROXOLYN PO SCH (06:02)
[2016-12-02] MEDS: HUMALOG SUBQ SCH ×4 (06:02→21:10)
[2016-12-02 07:43] LABS: HEMATOCRIT 34.6 % (42.0-52.0); HEMOGLOBIN 10.9 g/dL (14.0-18.0); MCH 26.2 PG (27-31); MCHC 31.5 g/dL (33-37); MCV 83.2 FL (81-99); MPV 9.9 FL (7.4-10.4); RBC 4.16 XMIL (4.7-6.1)
[2016-12-02] MEDS: MICRO-K PO SCH ×3 (10:01→16:45)
[2016-12-02] MEDS: FLOMAX PO SCH (10:01)
[2016-12-02] MEDS: AMARYL PO SCH ×2 (10:01→16:45)
[2016-12-02] MEDS: IMDUR PO SCH (10:01)
[2016-12-02] MEDS: FLEXERIL PO SCH ×3 (10:02→16:45)
[2016-12-02] MEDS: COZAAR PO SCH (10:02)
[2016-12-02] MEDS: PEN VK PO SCH ×3 (10:02→16:45)
[2016-12-02] MEDS: PROTONIX IV SCH (10:02)
[2016-12-02] MEDS: ALDACTONE PO SCH (10:02)
[2016-12-02] MEDS: NEURONTIN PO SCH ×4 (10:02→21:10)
[2016-12-02] MEDS: COREG PO SCH ×2 (10:02→21:10)
[2016-12-02] MEDS: LASIX IV SCH (10:02)
[2016-12-02] MEDS: SODIUM CHLORIDE 0.9% INJ SCH (10:03)
--- NOTE | 2016-12-02 13:29 | PROGRESS NOTE ---
DATE: 12/02/2016 SUBJECTIVE: Patient says he did not sleep well at all last night, but he is sleeping some during the day today. He feels like the fluid is getting off of his abdomen. OBJECTIVE: Afebrile. Pulse 92, respirations 18, blood pressure 133/75, O2 saturation on room air 94%. CV: Irregularly irregular. Lungs: CTA. Abdomen: Very protuberant. Large. Morbid obesity. Extremities: No edema. LABORATORY STUDIES: Sodium 135, potassium 3.6, chloride 88, CO2 of 32. BUN 36, creatinine 1.5. Blood sugars ranging 192-251. White count 11. Hemoglobin 10.9, platelets 287,000. Intake 1580. Output 3550. ASSESSMENT: 1. Ojvvs-ta-diffhcr diastolic congestive heart failure. 2. . 3. Hematochezia, stable. 4. Iron deficiency anemia. 5. Type 2 diabetes mellitus. 6. [id number]-cfvwkvg renal insufficiency. 7. Morbid obesity. 8. Sleep apnea. 9. Scrotal ulcerations followed by Dr. Greer. 10. Chronic back pain, on chronic pain medicine per pain clinic in [place]. PLAN: We cut back on his Lasix a little bit yesterday, he still continues to diurese at the appropriate amount. Continue potassium supplementation, Zaroxolyn, Aldactone, Lasix, Coreg. Continue to adjust Amaryl upward slightly. Continue pain control with the medication he has been on at home. Possible discharge in 48 hours if the patient continues to improve at current rate if okay with GI. cc: Yusef Gonzalez MD
[2016-12-03] MEDS: ZAROXOLYN PO SCH (06:18)
[2016-12-03] MEDS: HUMALOG SUBQ SCH ×4 (06:18→20:12)
[2016-12-03] MEDS: AMARYL PO SCH ×2 (09:23→17:30)
[2016-12-03] MEDS: ALDACTONE PO SCH (09:24)
[2016-12-03] MEDS: NEURONTIN PO SCH ×4 (09:24→20:12)
[2016-12-03] MEDS: FLEXERIL PO SCH ×3 (09:24→17:27)
[2016-12-03] MEDS: COREG PO SCH ×2 (09:24→20:12)
[2016-12-03] MEDS: FLOMAX PO SCH (09:24)
[2016-12-03] MEDS: COZAAR PO SCH (09:25)
[2016-12-03] MEDS: MICRO-K PO SCH ×3 (09:25→17:27)
[2016-12-03] MEDS: IMDUR PO SCH (09:26)
[2016-12-03] MEDS: PEN VK PO SCH ×3 (09:26→17:26)
[2016-12-03] MEDS: LASIX IV SCH (09:26)
[2016-12-03] MEDS: PROTONIX IV SCH (11:56)
--- NOTE | 2016-12-03 13:18 | PROGRESS NOTE ---
DATE: 12/03/2016 SUBJECTIVE: Patient states he is feeling a little better. He is eating lunch at present time and tolerating without difficulty. He states he has not had a bowel movement since Tuesday. No reported blood in the stool. VITAL SIGNS: Temperature 98.0 degrees, pulse 71, respirations 18, blood pressure 103/54. LABORATORY: Hematology: White blood cells 11.24, hemoglobin 10.9, hematocrit 34.6, platelets 287. Chemistry: Sodium 135, potassium 3.6, chloride 88, CO2 of 32, BUN 36, creatinine 1.5, glucose 192. ASSESSMENT: 1. Congestive heart failure. 2. Hematochezia, currently stable. 3. Iron-deficiency anemia. 4. Type 2 diabetes. 5. Renal insufficiency. 6. Morbid obesity. PLAN: Continue diuretics. He has not had a bowel movement since Tuesday. He states he normally takes a stool softener/laxative at home. I will order Jessica-Colace 2 tablets every night. Will continue to follow. Once he is discharged, follow up with him in the office and further plans will be made as needed. Patient voices understanding. We will continue to be available while he is in the hospital. Dictated by SB Urbano for Dawson Farmer MD cc: SB Hermosillo MD Stephen W. Harbin, MD
--- NOTE | 2016-12-03 16:51 | PROGRESS NOTE ---
DATE: 12/03/2016 SUBJECTIVE: The patient is stable. She currently has just been in the bathroom. He is stooling. OBJECTIVE: Afebrile. Blood pressure 103/54, respirations 18, pulse 71, O2 saturation room air 96%.CV: Irregularly irregular. Lungs: Clear. Abdomen: Morbidly obese. Abdomen less edema. Extremities: Appeared to be improved with no edema apparent. Is and Os show -3080 mL. He is eating his meals well. Blood sugars running in the low 200s. ASSESSMENT: 1. Acute on chronic diastolic congestive heart failure. 2. Chronic atrial fibrillation. 3. Hematochezia. 4. Iron deficiency anemia. 5. Type 2 diabetes mellitus. 6. Acute on chronic renal insufficiency. 7. Morbid obesity. 8. Sleep apnea. 9. Scrotal ulcerations followed by Dr. Greer outpatient. 10. Chronic back pain on chronic pain medications. PLAN: Continue IV Lasix and oral Aldactone. Continue Coreg, Imdur, losartan, Zaroxolyn, potassium supplementation. For his scrotal ulcerations he is to continue Pen-VK. We have restarted his glimepiride and we will recheck his renal function tomorrow. Continue bariatric bed. Possible discharge tomorrow if he does well. cc: Yusef Gonzalez MD
[2016-12-03] MEDS: PERICOLACE PO SCH (20:12)
[2016-12-04 05:28] LABS: MANUAL DIFF NEEDED? NO
[2016-12-04 05:36] LABS: BASO% 0.7 % (0.0-0.8); EOS# 0.54 X1000 (0.0-0.7); EOS% 3.4 % (0.0-10.0); HEMOGLOBIN 10.9 g/dL (14.0-18.0); IMM GRAN# 0.06 X1000 (0.0-0.04); IMM GRAN% 0.4 % (0.0-0.5); LYMPH# 2.36 X1000 (1.2-3.4); LYMPH% 14.9 % (20.5-51.1); MCH 26.1 PG (27-31); MCHC 32.1 g/dL (33-37); MCV 81.5 FL (81-99); MONO# 1.72 X1000 (0.11-0.59); MONO% 10.9 % (1.7-9.3); MPV 9.9 FL (7.4-10.4); NEUT% 69.7 % (42.2-75.2); PLT 301 X1000 (130-400); RBC 4.17 XMIL (4.7-6.1)
[2016-12-04] MEDS: HUMALOG SUBQ SCH ×4 (06:23→20:14)
[2016-12-04] MEDS: ZAROXOLYN PO SCH (06:23)
[2016-12-04] MEDS: PRILOSEC PO SCH (06:23)
[2016-12-04 06:34] LABS: CALCIUM 9.6 mg/dL (8.8-10.2); POTASSIUM 3.1 mmol/L (3.5-5.1)
[2016-12-04] MEDS: LASIX IV SCH (09:07)
[2016-12-04] MEDS: MICRO-K PO SCH ×3 (09:07→16:51)
[2016-12-04] MEDS: AMARYL PO SCH ×2 (09:07→16:51)
[2016-12-04] MEDS: PEN VK PO SCH ×3 (09:07→16:51)
[2016-12-04] MEDS: FLEXERIL PO SCH ×3 (09:08→20:14)
[2016-12-04] MEDS: NEURONTIN PO SCH ×4 (09:08→20:14)
[2016-12-04] MEDS: COREG PO SCH ×2 (09:08→20:14)
[2016-12-04] MEDS: IMDUR PO SCH (09:08)
[2016-12-04] MEDS: FLOMAX PO SCH (09:08)
[2016-12-04] MEDS: COZAAR PO SCH (09:08)
[2016-12-04] MEDS: ALDACTONE PO SCH (09:08)
[2016-12-04] MEDS ORDERED: KLOR-CON PO ONE (09:30)
--- NOTE | 2016-12-04 11:52 | PROGRESS NOTE ---
DATE: 12/04/2016 SUBJECTIVE: Patient is sleeping; I did not wake him. He is in no acute distress. OBJECTIVE/VITAL SIGNS: Temperature 97.3 degrees, pulse 79, respirations 20, blood pressure 118/57. DIAGNOSTIC RESULTS/LABORATORY: Hematology: White count 15.79, hemoglobin 10.9, hematocrit 34.0, MCV 81.5. Chemistry: Sodium 132, potassium 3.1, chloride 86, CO2 31, BUN 55, creatinine 2.2, glucose 201. ASSESSMENT AND PLAN: 1. Congestive heart failure. 2. Chronic atrial fibrillation. 3. Acute on chronic renal insufficiency. 4. Morbid obesity. 5. Scrotal ulcerations. He has been seen by Dr. Greer as an outpatient. 6. Hematochezia. He had not had any other bleeding reported yesterday. Did order Jessica-Colace yesterday and he has had 2 bowel movements per intake/output report. Will continue to follow. Once he is discharged, we will follow up with him in the office and we may need to proceed with a colonoscopy. Further plans to be made as needed . Dictated by SB Urbano for Dawson Farmer MD cc: SB Hermosillo MD Stephen W. Harbin, MD
--- NOTE | 2016-12-04 12:15 | PROGRESS NOTE ---
DATE: 12/04/2016 SUBJECTIVE: This is a cover for Dr. Gonzalez. 56-year-old morbidly obese white male, who was admitted to the hospital with type 2 diabetes, chronic kidney disease and a chronic atrial fibrillation with iron-deficiency anemia. Patient advised to go home. He says he is not feeling well. He is not offering any complaints other than not feeling well. PAST MEDICAL HISTORY, PAST SURGICAL HISTORY, MEDICINES: Reviewed. EXAMINATION: Temp is 97.3 degree, pulse at 79. Blood pressure is 118/57, 440 pounds. 95% pulse oximetry. The input and output are -500. Morbidly obese.HEENT: Within normal limits. Chest: Clear. CV: Irregular heart sounds. Abdomen: Belly is soft, obese, nontender. He had a Simpson catheter placed. Hydrocele noted in the testicles. Extremities: Venous stasis dermatitis and no obvious focal deficits. INVESTIGATIONS: CBC: White cell count 15, hematocrit 34, platelets 301,000. SMA 7: Sodium 132, potassium 3.1, chloride 86, BUN 55, creatinine 2.2, glucose 200. Stool for a couple of days negative. ASSESSMENT AND PLAN: 1. Chronic kidney disease. Discontinue medications metformin. Will continue on Amaryl and Januvia. 2. Hypertension on losartan 25 mg daily, Lasix and Zaroxolyn. Coreg 12.5 p.o. b.i.d. for blood pressure. 3. Chronic atrial fibrillation, stable. 4. Constipation. On Colace. 5. BPH on Flomax. 6. Hypokalemia, replete potassium. 7. History of acid reflux disease on Prilosec. 8. Sleep apnea on CPAP machine. We will discharge in the morning. The level of documentation 35 minutes. cc: MD Yusef Crocker MD
[2016-12-04] MEDS: DURAGESIC 25 MICROGM/HR PATCH TD SCH (14:47)
[2016-12-04] MEDS: PERICOLACE PO SCH (20:14)
[2016-12-05] MEDS: ZAROXOLYN PO SCH (06:11)
[2016-12-05] MEDS: PRILOSEC PO SCH (06:11)
[2016-12-05] MEDS: HUMALOG SUBQ SCH ×4 (06:11→22:13)
[2016-12-05] MEDS: FLOMAX PO SCH (08:51)
[2016-12-05] MEDS: LASIX IV SCH (08:51)
[2016-12-05] MEDS: PEN VK PO SCH ×3 (08:51→15:59)
[2016-12-05] MEDS: NEURONTIN PO SCH ×4 (08:51→22:13)
[2016-12-05] MEDS: COZAAR PO SCH (08:51)
[2016-12-05] MEDS: MICRO-K PO SCH ×3 (08:51→15:59)
[2016-12-05] MEDS: IMDUR PO SCH (08:52)
[2016-12-05] MEDS: ALDACTONE PO SCH (08:52)
[2016-12-05] MEDS: AMARYL PO SCH ×2 (08:52→15:59)
[2016-12-05] MEDS: COREG PO SCH ×2 (08:52→22:13)
[2016-12-05] MEDS: FLEXERIL PO SCH ×3 (08:52→22:13)
--- NOTE | 2016-12-05 09:56 | PROGRESS NOTE ---
DATE: 12/05/2016 SUBJECTIVE: A 56-year-old, white gentleman who appears to be fine, watching TV. Discussion was made to discharge home. He said that he is not feeling well today. He is too sick to go home and come back. He denied of any complaints. PHYSICAL EXAMINATION: Vital Signs: He is afebrile at 97.7 pulse is 68, blood pressure is 111/61, 97% on room air. Weight 440 pounds. General: Simpson catheter was placed is and Os negative 1240. He is morbidly obese. Not in respiratory distress. Heart: Heart sounds are very distant. Appears to be atrial fibrillation: Abdomen: Belly is soft and nontender. Genitalia: Simpson was placed. Extremities: Chronic venous stasis changes noted. LABORATORY DATA: No labs were obtained. ASSESSMENT AND PLAN: 1. Chronic kidney disease. Discontinue metformin. We will continue on Amaryl and Januvia. 2. Hypertension is stable. 3. Chronic atrial fibrillation, stable. 4. Benign prostatic hypertrophy, on Flomax. 5. Constipation, on Colace. 6. Sleep apnea, on CPAP machine. PLAN: Discontinue Simpson in the morning and hopefully he will be discharged in the morning. LEVEL OF DOCUMENTATION: 25 minutes. cc: MD Yusef Crocker MD
[2016-12-05] MEDS: PERICOLACE PO SCH (22:13)
[2016-12-06] MEDS: PRILOSEC PO SCH (06:09)
[2016-12-06] MEDS: HUMALOG SUBQ SCH (06:09)
[2016-12-06] MEDS: ZAROXOLYN PO SCH (06:09)
[2016-12-06 08:14] VITALS: BP 112/56
[2016-12-06] MEDS: FLEXERIL PO SCH (08:59)
[2016-12-06] MEDS: AMARYL PO SCH (08:59)
[2016-12-06] MEDS: PEN VK PO SCH (08:59)
[2016-12-06] MEDS: COZAAR PO SCH (08:59)
[2016-12-06] MEDS: IMDUR PO SCH (08:59)
[2016-12-06] MEDS: FLOMAX PO SCH (08:59)
[2016-12-06] MEDS: MICRO-K PO SCH (08:59)
[2016-12-06] MEDS: LASIX IV SCH (09:00)
[2016-12-06] MEDS: COREG PO SCH (09:00)
[2016-12-06] MEDS: ALDACTONE PO SCH (09:00)
[2016-12-06] MEDS: NEURONTIN PO SCH (09:00)
--- NOTE | 2017-01-16 18:56 | DISCHARGE SUMMARY ---
ADMISSION DATE: 11/27/2016 DISCHARGE DATE: 12/06/2016 DIAGNOSES: 1. Ixbdy-rs-bwzcmdf diastolic congestive heart failure. 2. Chronic atrial fibrillation. 3. Hematochezia. 4. Iron-deficiency anemia. 5. Type 2 diabetes mellitus. 6. Rzdgz-us-bywdqrq renal insufficiency. 7. Morbid obesity. 8. Obstructive sleep apnea, on treatment. 9. Scrotal ulcerations. Followed by Dr. Greer outpatient. 10. Chronic back pain, on chronic pain medications. PROCEDURES: 1. Chest x-ray, 11/27/2016, revealed stable severe cardiomegaly and pulmonary vascular congestion. 2. Repeat chest x-ray, done 11/28/2016, no change from prior. 3. Echocardiogram, done 11/28/2016, revealing study was done with IV administration of Definity. Preserved left ventricular chamber function. EF of 55% to 60%. Right ventricle moderately- to significantly enlarged, possible hypokinesis. Mild degree of pulmonary hypertension. Left ventricular diastolic function could not be evaluated. Difficult study due to body habitus. CONSULTATION: Dr. Cortes/Darian. REASON FOR ADMISSION AND HOSPITAL COURSE: The patient is a 56-year-old white male, followed in my medical practice, who suffers from morbid obesity, type 2 DM, COMPA, PAF, BPH and chronic diastolic dysfunction/CHF. He came in with profound lower extremity edema and abdominal obesity and edema. The patient was admitted and kept on his BiPAP. Echocardiogram was obtained. The patient was continued on his Xarelto and rate controlled with Coreg. Continued Lasix and added Zaroxolyn. We held his metformin and Amaryl, and gave him SSI. Dr. Cortes saw the patient in consultation, and Mr. Alarcon decided he wanted to wait and pursue his care with Dr. Farmer when he came back into town. Thus, that will be undertaken outpatient. Nephrology saw the patient and assisted in his care as well. The patient diuresed with treatment. He remained in atrial fibrillation. Blood pressure and O2 saturations improved. He was placed on oral Aldactone. He was placed on Imdur. We restarted his Amaryl. He was maintained on a bariatric bed to try to help his skin. By 12/06/2016, the patient had improved to the point he could be discharged home. DISCHARGE MEDICATIONS: 1. Amaryl 4 mg p.o. b.i.d. 2. Flexeril 10 mg p.o. t.i.d. 3. Flomax 0.4 mg p.o. daily. 4. Omeprazole 40 mg p.o. daily. 5. Xarelto 20 mg p.o. daily. 6. Aldactone 25 mg p.o. q.a.m. 7. Coreg 25 mg p.o. b.i.d. 8. Cozaar 25 mg p.o. daily. 9. Imdur 30 mg p.o. daily. 10. Zaroxolyn 5 mg p.o. daily. 11. Cardizem-CD 120 mg p.o. daily. 12. Fentanyl patch 25 mcg to skin q.72 hours, per Pain Clinic. 13. Lasix 80 mg p.o. b.i.d. 14. Micro-K 8 mEq, 3 p.o. t.i.d. 15. Januvia 100 mg p.o. daily, per Dr. Fofana, at discharge. LABORATORIES: Discharge labs showed white count 15, hemoglobin 10.9, platelets 301,000. PTT 12, INR 1.13, PTT 28.5. BUN 55, creatinine 2.2, sodium 132, potassium 3.1. Admission creatinine 1.8. LFTs normal. CK 140, troponin less than 0.01. ProBNP on admission at 1551. TSH 1.8. Urinalysis negative. cc: Yusef Gonzalez MD
== END 2016-12-06 10:35 | disposition home or self-care (01) ==
LOC: SUPCPDRO → ED 16:54 → SUATTDRO 22:51 → 3S 22:51
PROVIDERS: ADMIT Family Medicine; ATTEND Family Medicine

== ENCOUNTER 2019-03-25 00:40 | Inpatient (IN) ==
[2019-03-25] MEDS ORDERED: MORPHINE IV ONE (02:55)
[2019-03-25] MEDS ORDERED: TYLENOL PO ONE (02:56)
[2019-03-25 04:16] LABS: BASO# 0.06 X1000 (0.0-0.2); BASO% 0.5 % (0.0-0.8); EOS# 0.18 X1000 (0.0-0.7); EOS% 1.5 % (0.0-10.0); HEMATOCRIT 34.5 % (42.0-52.0); HEMOGLOBIN 10.7 g/dL (14.0-18.0); IMM GRAN# 0.07 X1000 (0.0-0.04); IMM GRAN% 0.6 % (0.0-0.5); LYMPH# 1.72 X1000 (1.2-3.4); LYMPH% 14.1 % (20.5-51.1); MCH 26.8 PG (27-31); MCV 86.5 FL (81-99); MONO# 1.09 X1000 (0.11-0.59); MONO% 8.9 % (1.7-9.3); MPV 9.7 FL (7.4-10.4); NEUT# 9.08 X1000 (1.4-6.5); NEUT% 74.4 % (42.2-75.2); PLT 257 X1000 (130-400); RBC 3.99 XMIL (4.7-6.1); RDW 14.7 % (11.5-14.5)
[2019-03-25 04:47] LABS: ALB/GLOB RATIO 1.2; ALBUMIN 4.6 g/dL (3.5-5.0); C REACTIVE PROT QUANT 58.13 mg/L (0.00-5.00); CALCIUM 9.6 mg/dL (8.8-10.2); CREATININE 1.4 mg/dL (0.7-1.2); POTASSIUM 3.5 mmol/L (3.5-5.1); TOTAL BILIRUBIN 0.61 mg/dL (0.20-1.00); TOTAL PROTEIN 8.5 g/dL (6.3-8.3)
[2019-03-25] MEDS ORDERED: VANCOMYCIN 1 GM/NS 1 GM/250 ML IVPB IV ONE (05:09)
--- NOTE | 2019-03-25 05:15 | PROVIDER DOCUMENTATION ---
HPI-General Adult - General Chief Complaint: Extremity Pain Stated Complaint: (R) ELBOW HURTS Time Seen by Provider: 03/25/19 02:44 Source: patient Allergies/Adverse Reactions: Patient Allergies Allergy/AdvReac Type Severity Reaction Status Date / Time ibuprofen Allergy Severe ANAPHYLAXIS Verified 03/25/19 02:56 venom-honey bee Allergy ANAPHYLAXIS Verified 03/25/19 02:56 [bee venom (honey bee)] Home Medications: Home Medication List Medication Instructions Recorded Confirmed Last Taken Type Cyclobenzaprine [Flexeril] 10 mg PO TID 12/05/12 03/25/19 04/14/17 History Omeprazole 40 mg PO DAILY 02/01/14 03/25/19 04/14/17 History Rivaroxaban [Xarelto] 20 mg PO DAILY 02/01/14 03/25/19 04/14/17 History Tamsulosin [Flomax] 0.4 mg PO DAILY 02/01/14 03/25/19 04/14/17 History Rizatriptan Benzoate [Maxalt Student Admissions Clerk] 10 mg PO DAILY PRN PRN #10 12/30/14 03/25/19 04/14/17 Rx tab.rapdis Escitalopram [Lexapro] 20 mg PO DAILY 04/15/17 03/25/19 04/14/17 History Fluticasone/Salmeterol [Advair 1 each IH BID 04/15/17 03/25/19 04/14/17 History 500-50 Diskus] Gabapentin 800 mg PO DAILY 04/15/17 03/25/19 Unknown History Carvedilol [Coreg] 25 mg PO Q12H #60 tab 04/18/17 03/25/19 Unknown Rx Furosemide [Lasix] 80 mg PO BID #60 tab 04/18/17 03/25/19 Unknown Rx Hydralazine HCl 25 mg PO BID #60 tab 04/18/17 03/25/19 Unknown Rx Isosorbide Mononitrate E.r. [Imdur] 30 mg PO DAILY #30 tab 04/18/17 03/25/19 Unknown Rx Losartan [Cozaar] 25 mg PO DAILY #30 tab 04/18/17 03/25/19 Unknown Rx Metolazone [Zaroxolyn] 5 mg PO DAILY@0530 #30 tab 04/18/17 03/25/19 Unknown Rx Potassium Chloride E.r. [Micro-K] 24 meq PO TID #90 cap 04/18/17 03/25/19 Unknown Rx Spironolactone [Aldactone] 25 mg PO DAILY #30 tab 04/18/17 03/25/19 Unknown Rx Glimepiride 4 mg PO DAILY 03/25/19 03/25/19 Unknown History - History of Present Illness -Gen Adult Nature of Presenting Problems: Pt presents with right elbow pain, x 24 hours, subjective fever at home, pain with movement, sharp, no radiation, elbow is warm, pt denies f/c, fletcher, cp, sob, cough, ap, n/v/d. Pt is lying in bed in no acute distress. Location of Pain/Injury: reports: other (right elbow) Pain Radiation: reports: no radiation Quality of Pain: reports: sharp Severity: reports: moderate Onset/Duration: reports: 24 hours ago Timing: reports: still present Context/Activities at Onset: reports: none Modifying Factors: improves with: nothing Associated Symptoms: reports: denies symptoms Similar Symptoms Previously?: No Recently seen or treated by another doctor?: No Review of Systems - Adult - REVIEW OF SYSTEMS - ADULT Constitutional: reports: no symptoms reported Eyes: reports: no symptoms reported Ears, Nose, Mouth & Throat: reports: no symptoms reported Cardiovascular: reports: no symptoms reported Respiratory: reports: no symptoms reported Gastrointestinal: reports: no symptoms reported Genitourinary: reports: no symptoms reported Musculoskeletal: reports: see HPI Integumentary: reports: no symptoms reported Neurological: reports: no symptoms reported Psychiatric: reports: no symptoms reported Endocrine: reports: no symptoms reported Hematologic/Lymphatic: reports: no symptoms reported Allergic/Immunologic: reports: no symptoms reported All Other Systems: Reviewed and Negative Past History - Adult - PAST MEDICAL HISTORY-ADULT Review of Records: reports: Old Records Reviewed, Nursing Assessment Review, Medications Reviewed, Social history reviewed & non-contributory. Major Childhood Illnesses: reports: denies history Cardiovascular: reports: A-Fib, CHF, HTN Respiratory: reports: COPD, sleep apnea Gastrointestinal: reports: denies history Obstetrical/Gynecological: reports: denies history Genitourinary: reports: denies history Musculoskeletal: reports: chronic pain Neurological: reports: denies history Endocrine/Immune: reports: Diabetes Other Conditions: reports: denies history - PRIOR SURGERIES/PROCEDURES Surgical/Procedure History: reports: reviewed, not pertinent - PRIOR HOSPITALIZATIONS Prior Hospitalizations: reports: for similar symptoms - IMMUNIZATION STATUS Childhood Immunizations: See Nurse Assessment Flu Vaccine: See Nurse Assessment - FAMILY HISTORY Family History: reviewed, not pertinent Physical Exam-General - PHYSICAL EXAM-ADULT Initial Vital Signs Reviewed: Yes - CONSTITUTIONAL General Appearance: appears well - EYES Eyes: PERRL/EOMI - HEAD, EARS, NOSE, MOUTH & THROAT HENMT: normocephalic/atraumatic - NECK Neck: normal inspection - RESPIRATORY Respiratory: lungs clear, no respiratory distress, no accessory muscle use - CARDIOVASCULAR Cardiovascular: regular rate, rhythm - GASTROINTESTINAL (ABDOMEN) Abdominal Exam: non tender, soft - LYMPHATIC Lymphatic: no adenopathy - MUSCULOSKELETAL Back Exam: normal inspection Extremity: swelling, tenderness, other (warm right elbow, pain with range of motion) - SKIN Integumentary: normal color - NEUROLOGIC Neurologic: grossly normal - PSYCHIATRIC Psych/Mental Status: normal mood/affect Progress - PLAN OF CARE/RESULTS Progress/Plan/Lab Results: Vital Signs - 8 hr 03/25/19 00:45 Temperature 97.5 F L Pulse Rate 110 H Respiratory Rate 20 Blood Pressure 178/107 O2 Sat by Pulse Oximetry 94 L Laboratory Results - last 24 hr 03/25/19 03/25/19 03:53 03:53 WBC 12.20 H RBC 3.99 L Hgb 10.7 L Hct 34.5 L MCV 86.5 MCH 26.8 L MCHC 31.0 L RDW Std Deviation 14.7 H Plt Count 257 MPV 9.7 Immature Gran % (Auto) 0.6 H Neut % (Auto) 74.4 Lymph % (Auto) 14.1 L [place] % (Auto) 8.9 Eos % (Auto) 1.5 Baso % (Auto) 0.5 Immature Gran # (Auto) 0.07 H Neut # (Auto) 9.08 H Lymph # (Auto) 1.72 [place] # (Auto) 1.09 H Eos # (Auto) 0.18 Baso # (Auto) 0.06 Sodium 135 L Potassium 3.5 Chloride 93 L Carbon Dioxide 26 Anion Gap 16 BUN 21 Creatinine 1.4 H Estimated GFR/1.73 m2 52 BUN/Creatinine Ratio 15 Glucose 162 H Calculated Osmolality 277 Calcium 9.6 Total Bilirubin 0.61 AST 17 ALT 13 Alkaline Phosphatase 115 C-Reactive Prot, Quant 58.13 H Total Protein 8.5 H Albumin 4.6 Globulin 3.9 Albumin/Globulin Ratio 1.2 Orders Category Date Time Status ELBOW COMPLETE RIGHT [RAD] Stat Exams 03/25/19 02:55 Taken BLOOD CULTURE [BLDCUL] Stat Lab 03/25/19 03:53 Results C REACTIVE PROT QUANT [CHEM] Stat Lab 03/25/19 03:53 Completed CBC WITH DIFF [HEME] Stat Lab 03/25/19 03:53 Results COMPREHENSIVE METABOLIC PANEL [CHEM] Stat Lab 03/25/19 03:53 Completed SED RATE [HEME] Stat Lab 03/25/19 03:53 Results Acetaminophen [Tylenol] Med 03/25/19 02:56 Discontinued 1,000 mg PO NOW ONE Morphine Med 03/25/19 02:55 Discontinued 4 mg IV NOW ONE Vancomycin 1 gm/Ns Med 03/25/19 05:09 Active 1 gm in 250 ml IV NOW Result Diagrams: 03/25/19 03:53 03/25/19 03:53 Departure - Departure Date of Disposition Decision: 03/25/19 Time of Disposition Decision: 05:14 DIAGNOSIS: Infection of right elbow Disposition: ADMITTED INPATIENT 09 Certified Medical Emergency: Emergent Condition: Stable Referrals and Follow-Ups: Yusef Gonzalez MD [Primary Care Provider] - - Critical Care Note This patient required my direct & personal management of CC.: No Attestation - Physician/ NAT Attestation Patient care was provided by Advanced Practice Provider:: No The physician spent face to face time with patient:: Yes Advanced Practice Provider documentation review:: Supervising physician onsite and consulted in the evaluation and care of this patient. The physician did have a face to face encounter with the patient.
[2019-03-25 05:20] LABS: SED RATE 63 mm/hr (0-15)
--- NOTE | 2019-03-25 06:51 | HISTORY AND PHYSICAL ---
PRIMARY CARE PHYSICIAN: Dr. Gonzalez. CHIEF COMPLAINT: Right elbow pain. HISTORY OF PRESENTING ILLNESS: A 58-year-old male with a history of diabetes mellitus type 2, CHF, COPD, hypertension, who had presented to the emergency department with 2 days history of worsening right elbow pain. Patient states that he is unable to move his elbow and it is pretty painful. He states that he was noting some tenderness and redness around the right elbow region. He was evaluated in the emergency department and it was suspected he had cellulitis; subsequently, it was thought that we will place him for observation for further evaluation and management. At the time of my examination, patient denied any headache, fever, chills, chest pain, shortness of breath, but complained of right elbow pain. PAST MEDICAL HISTORY: Include diabetes mellitus type 2, CHF, COPD, hypertension. PAST SURGICAL HISTORY: Left knee surgery, left ankle surgery tonsillectomy, nose surgery. ALLERGIES: Ibuprofen and Bees. CURRENT MEDICATIONS: Coreg 25 mg p.o. q.12 hours, Flexeril 10 mg p.o. t.i.d., Lexapro 10 mg p.o. daily, Lasix 80 mg p.o. b.i.d., gabapentin 800 mg p.o. daily, glimepiride 4 mg p.o. daily, hydralazine 25 mg p.o. b.i.d., isosorbide mononitrate 30 mg p.o. daily, losartan 25 mg p.o. daily, metolazone 5 mg p.o. daily, omeprazole 40 mg p.o. daily, Xarelto 20 mg p.o. daily, spironolactone 25 mg p.o. daily, Flomax 0.4 mg p.o. daily. SOCIAL HISTORY: No history of smoking. Admits to social alcohol use. Denies any illicit drug use. FAMILY HISTORY: No history of coronary artery disease. REVIEW OF SYSTEMS: Fourteen-point review of system is as in HPI. Other systems negative. PHYSICAL EXAMINATION: GENERAL: Cooperative, friendly male. He is resting comfortably now. VITAL SIGNS: Temperature 97.5 degrees, pulse 110, respirations 20, blood pressure 170/107. HEENT: Atraumatic, normocephalic. Extraocular movements intact. PERRLA. NECK: No masses. CHEST: Clear to auscultation. CARDIOVASCULAR: Regular rate and rhythm. ABDOMEN: Soft. Positive bowel sounds. EXTREMITIES: Right elbow tenderness. NEUROLOGIC: He is awake, alert, oriented x3. GENITOURINARY: No bladder distention. SKIN: Warm. LABORATORIES AND STUDIES: WBCs 12.20, hemoglobin 10.7, hematocrit 34.5, platelets 257,000. Sodium 135, potassium 3.5, chloride 93, CO2 of 26, BUN is 21, creatinine is 1.4. Glucose 162. ASSESSMENT: This is a 58-year-old male with a history of diabetes mellitus type 2, congestive heart failure, chronic obstructive pulmonary disease, hypertension, that presented to the emergency department with 2 days history of worsening right elbow pain. He was evaluated in the emergency department, suspected possibly he had cellulitis; subsequently, we will place him for observation for further evaluation and management. 1. Right elbow cellulitis. 2. Diabetes mellitus type 2. 3. Hypertension. 4. Chronic obstructive pulmonary disease. PLAN: 1. We will admit patient to medical floor with telemetry. 2. Start patient on IV antibiotics and give adequate pain control. 3. Monitor blood glucose and put patient on sliding scale insulin regimen. 4. We will monitor blood pressure. Resume antihypertensive agent. 5. We will continue with DuoNebs p.r.n. 6. The patient is on Xarelto and that will suffice for DVT prophylaxis. 7. We will continue to follow and reassess, make further recommendation based on patient's clinical course. cc: Alan Cervantes MD
[2019-03-25] MEDS ORDERED: VANCOMYCIN IV PER PHARMACY MISC SCH (08:02)
[2019-03-25] MEDS ORDERED: ZOFRAN IV PRN (08:02)
[2019-03-25 08:39] LABS: BASO# 0.06 X1000 (0.0-0.2); BASO% 0.5 % (0.0-0.8); EOS% 1.6 % (0.0-10.0); HEMATOCRIT 34.3 % (42.0-52.0); HEMOGLOBIN 10.6 g/dL (14.0-18.0); IMM GRAN# 0.05 X1000 (0.0-0.04); IMM GRAN% 0.4 % (0.0-0.5); LYMPH# 2.44 X1000 (1.2-3.4); LYMPH% 19.6 % (20.5-51.1); MCH 27.1 PG (27-31); MCHC 30.9 g/dL (33-37); MCV 87.7 FL (81-99); MONO# 1.45 X1000 (0.11-0.59); MONO% 11.7 % (1.7-9.3); MPV 9.6 FL (7.4-10.4); NEUT# 8.23 X1000 (1.4-6.5); NEUT% 66.2 % (42.2-75.2); PLT 232 X1000 (130-400); RBC 3.91 XMIL (4.7-6.1); RDW 14.6 % (11.5-14.5); WBC 12.43 X1000 (4.8-10.8)
[2019-03-25] MEDS: PRILOSEC PO SCH (09:03)
[2019-03-25] MEDS: FLEXERIL PO SCH ×3 (09:03→20:32)
[2019-03-25] MEDS: AMARYL PO SCH (09:03)
[2019-03-25] MEDS: XARELTO PO SCH ×2 (09:03→09:16)
[2019-03-25] MEDS: LEXAPRO PO SCH (09:04)
[2019-03-25] MEDS: NEURONTIN PO SCH (09:04)
[2019-03-25] MEDS: COREG PO SCH ×2 (09:04→20:32)
[2019-03-25] MEDS: ALDACTONE PO SCH (09:04)
[2019-03-25] MEDS: IMDUR PO SCH (09:05)
[2019-03-25] MEDS: COZAAR PO SCH (09:05)
[2019-03-25] MEDS: LASIX PO SCH ×2 (09:05→20:32)
[2019-03-25] MEDS: APRESOLINE PO SCH ×2 (09:05→20:32)
[2019-03-25] MEDS: ROCEPHIN 1 GM in NS 50 ML IV SCH (09:06)
[2019-03-25] MEDS: FLOMAX PO SCH (09:08)
[2019-03-25] MEDS: DILAUDID IV PRN (10:43)
[2019-03-25] MEDS: DUONEB (A & A) INH PRN ×2 (10:52→15:44)
--- NOTE | 2019-03-25 11:20 | Diag Imaging Result Doc PS360 ---
EXAM: ELBOW COMPLETE RIGHT - 03/25/2019 HISTORY: elbow pain TECHNIQUE: Right elbow three views COMPARISON: None. FINDINGS: There are moderate degenerative/osteoarthritic changes. There are no erosive or destructive changes identified. There is no discrete fracture or dislocation identified. There is no discrete distal humeral fat pad elevation. There is smooth bowing of the proximal shaft of the ulna which is likely long-standing. IMPRESSION: Moderate degenerative/osteoarthritic changes. Electronically signed by Braeden Stout 03/25/2019 11:17 AM
--- NOTE | 2019-03-25 12:18 | PROGRESS NOTE ---
DATE: 03/25/2019 SUBJECTIVE: A 58-year-old white male, patient of Dr. Gonzalez, admitted last night with right elbow pain, possible cellulitis by hospitalist. X-ray of right elbow showed moderate osteoarthritic changes noted. REVIEW OF SYSTEMS: Rest of the review of systems, none reported. PAST MEDICAL HISTORY: Reviewed. PAST SURGICAL HISTORY: Reviewed. MEDICINES: Reviewed. ALLERGIES: Ibuprofen, honey bee venom. PHYSICAL EXAMINATION: Vital Signs: Temp is 98.4 degrees, pulse 90, blood pressure is 160/96, saturating 95% on room air. His weight is 459 pounds. General: Morbidly obese. HEENT: Within normal limits. Neck: Not able to see the neck veins. Exam is suboptimal due to morbid obesity. Extremities: Right elbow was tender. I did not see any evidence of skin rash or cellulitis, and he is not able to move the elbow with a lot of pain. Chronic venous stasis in both legs noted. Abdomen: Belly is soft, obese. Suboptimal exam. Hydrocele present. Neurologic: No obvious neurological deficits. INVESTIGATIONS: CBC: White cell count 12.4, hematocrit 34, platelets 232,000. Sodium 135, potassium 3.5, BUN 21, creatinine 1.4, glucose 162. CRP was high. X-ray of elbow showed osteoarthritic changes noted. ASSESSMENT AND PLAN: 1. Right elbow pain, possible cellulitis, and he was given vancomycin and ceftriaxone. 2. Chronic venous stasis dermatitis. 3. Morbid obesity. 4. Hypertension. 5. Paroxysmal atrial fibrillation, on chronic Xarelto therapy. 6. Obstructive sleep apnea. PLAN OF CARE: I want to check the uric acid level in the morning, as well as CBC and BMP. Will add hydromorphone as needed. Reconcile home medications. Also, will give Nexium for GI prophylaxis. Dr. Gonzalez is going to follow up. cc: MD Yusef Crocker MD
[2019-03-25] MEDS ORDERED: TYLENOL PO PRN (14:38)
[2019-03-25] MEDS: VANCOMYCIN 2,500 MG in NS 500 ML IV SCH (18:04)
[2019-03-26] MEDS: DILAUDID IV PRN ×6 (00:21→22:30)
[2019-03-26] MEDS: ZAROXOLYN PO SCH (05:54)
[2019-03-26] MEDS: DUONEB (A & A) INH PRN ×4 (07:26→23:24)
[2019-03-26 07:29] LABS: BASO# 0.03 X1000 (0.0-0.2); BASO% 0.3 % (0.0-0.8); EOS# 0.53 X1000 (0.0-0.7); EOS% 5.6 % (0.0-10.0); HEMATOCRIT 32.1 % (42.0-52.0); HEMOGLOBIN 9.9 g/dL (14.0-18.0); IMM GRAN# 0.05 X1000 (0.0-0.04); IMM GRAN% 0.5 % (0.0-0.5); LYMPH# 1.88 X1000 (1.2-3.4); LYMPH% 19.9 % (20.5-51.1); MCHC 30.8 g/dL (33-37); MCV 87.5 FL (81-99); MONO# 0.94 X1000 (0.11-0.59); NEUT# 6.01 X1000 (1.4-6.5); NEUT% 63.7 % (42.2-75.2); PLT 193 X1000 (130-400); RBC 3.67 XMIL (4.7-6.1); RDW 14.5 % (11.5-14.5); WBC 9.44 X1000 (4.8-10.8)
[2019-03-26 08:15] LABS: AGAP 19; BUN 18 mg/dL (8-22); CALCIUM 9.1 mg/dL (8.8-10.2); CHLORIDE 95 mmol/L (98-107); COSMO 279; ESTIMATED GFR > 60; GLUCOSE 120 mg/dL (70-104); POTASSIUM 3.8 mmol/L (3.5-5.1); SODIUM 138 mmol/L (136-145); TCO2 24 mmol/L (25-35)
[2019-03-26] MEDS: COREG PO SCH ×2 (09:31→21:35)
[2019-03-26] MEDS: ROCEPHIN 1 GM in NS 50 ML IV SCH (09:32)
[2019-03-26] MEDS: ALDACTONE PO SCH (09:32)
[2019-03-26] MEDS: AMARYL PO SCH (09:33)
[2019-03-26] MEDS: FLEXERIL PO SCH ×3 (09:33→17:33)
[2019-03-26] MEDS: APRESOLINE PO SCH ×2 (09:33→21:35)
[2019-03-26] MEDS: COZAAR PO SCH (09:33)
[2019-03-26] MEDS: FLOMAX PO SCH (09:33)
[2019-03-26] MEDS: XARELTO PO SCH (09:34)
[2019-03-26] MEDS: PRILOSEC PO SCH (09:34)
[2019-03-26] MEDS: LEXAPRO PO SCH (09:34)
[2019-03-26] MEDS: LASIX PO SCH ×2 (09:34→21:35)
[2019-03-26] MEDS: IMDUR PO SCH (09:34)
[2019-03-26] MEDS: NEURONTIN PO SCH (09:34)
[2019-03-26] MEDS: COLCRYS PO SCH ×2 (10:10→21:35)
--- NOTE | 2019-03-26 14:21 | PROGRESS NOTE ---
DATE: 03/26/2019 SUBJECTIVE: Patient lying in bed. He has had severe pain in his right elbow. He remains on Rocephin and vancomycin. He said the pain is some the worse he has had. He has been on some Dilaudid 0.5 mg q[address] Mensah but desires to have that escalated. OBJECTIVE: Afebrile, pulse 88, respirations 16, blood pressure 135/73, O2 saturation 98% on 4 L.CV: Irregularly irregular. Lungs: CTA. Morbid obesity. Extremities: No calf tenderness. Right elbow with moderate tenderness to palpation, mild swelling. No major redness reviewed. LAB DATA: Reviewed lab data from admission showing sedimentation rate 63, white count of 12,000 is now 9000. CMP unremarkable except for creatinine of 1.4. CRP was 58. Uric acid level is elevated at 10. Blood sugars in the 100s. ASSESSMENT: 1. Right elbow pain, rule out cellulitis, suspect gout. 2. Morbid obesity. 3. Type 2 diabetes mellitus. 4. Hypertension. 5. Paroxysmal atrial fibrillation on chronic anticoagulation with Xarelto. 6. Chronic back pain. PLAN: Will add Colcrys to the Rocephin and vancomycin, continue home medications. If Colcrys is affective possible discharge tomorrow . cc: Yusef Gonzalez MD
[2019-03-26] MEDS: VANCOMYCIN 2,500 MG in NS 500 ML IV SCH (14:37)
[2019-03-27] MEDS: DILAUDID IV PRN ×5 (02:34→20:59)
[2019-03-27] MEDS: DUONEB (A & A) INH PRN ×2 (04:02→23:18)
[2019-03-27] MEDS: VANCOMYCIN 2,500 MG in NS 500 ML IV SCH (06:28)
[2019-03-27] MEDS: ZAROXOLYN PO SCH (06:28)
[2019-03-27] MEDS: FLEXERIL PO SCH ×3 (08:59→16:42)
[2019-03-27] MEDS: LEXAPRO PO SCH (09:33)
[2019-03-27] MEDS: NEURONTIN PO SCH (09:33)
[2019-03-27] MEDS: APRESOLINE PO SCH ×2 (09:33→20:59)
[2019-03-27] MEDS: ROCEPHIN 1 GM in NS 50 ML IV SCH (09:33)
[2019-03-27] MEDS: AMARYL PO SCH (09:33)
[2019-03-27] MEDS: COREG PO SCH ×2 (09:34→20:59)
[2019-03-27] MEDS: PRILOSEC PO SCH (09:34)
[2019-03-27] MEDS: IMDUR PO SCH (09:34)
[2019-03-27] MEDS: XARELTO PO SCH (09:34)
[2019-03-27] MEDS: COZAAR PO SCH (09:34)
[2019-03-27] MEDS: FLOMAX PO SCH (09:35)
[2019-03-27] MEDS: LASIX PO SCH ×2 (09:35→21:00)
[2019-03-27] MEDS: COLCRYS PO SCH ×2 (09:35→20:59)
[2019-03-27] MEDS: ALDACTONE PO SCH (09:35)
--- NOTE | 2019-03-27 18:08 | PROGRESS NOTE ---
DATE: 03/27/2019 SUBJECTIVE: The patient is seen early this morning, still having a lot of trouble bending his right elbow and arm. He has worked on that during the day today and that seemed to improve quite a bit. He still has some redness and warmth at the right elbow but it is diminishing some, as is the swelling. OBJECTIVE: Afebrile. Pulse 77, respirations 16, blood pressure 118/53. O2 saturation on room air 100%. CV: Irregularly irregular. Lungs clear. Abdomen very protuberant, nontender. Right elbow with some mild redness, warmth and swelling, overall improved. Lower extremities with prominent redness and some mild vesicular lesions. He says this is at his baseline. There is no calf tenderness or cords. Legs are extremely large. He is morbidly obese.Neurologic: Cranial nerves 2-12 are intact, nonfocal. LABORATORY DATA: Blood sugars in the mid 100s. Blood cultures x2 remain negative. ASSESSMENT: 1. Right elbow pain and swelling, thought primarily gout, less likely component of cellulitis. 2. Cellulitis of lower extremities, with chronic venous insufficiency. 3. Morbid obesity. 4. Type 2 diabetes mellitus. 5. Hypertension. 6. Paroxysmal atrial fibrillation, on chronic anticoagulation with Xarelto. 7. Chronic back pain. PLAN: He is on the Colcrys, Rocephin and vancomycin. We will continue those. Encouraged him in straightening of the right arm and exercises in this regard. We will repeat labs in the morning and if doing well, we will likely discharge the patient home tomorrow on the Colcrys. He has been off his Xarelto long-term at home, as he was fearful of side effects, but he is reconsidering. We will discuss that again tomorrow at discharge. cc: Yusef Gonzalez MD
[2019-03-28] MEDS: DILAUDID IV PRN ×4 (00:54→13:02)
[2019-03-28] MEDS: DUONEB (A & A) INH PRN (03:24)
[2019-03-28] MEDS: ZAROXOLYN PO SCH (05:37)
[2019-03-28 07:57] LABS: AGAP 17; BUN 27 mg/dL (8-22); C REACTIVE PROT QUANT 86.43 mg/L (0.00-5.00); CALCIUM 8.9 mg/dL (8.8-10.2); CHLORIDE 91 mmol/L (98-107); COSMO 276; CREATININE 1.2 mg/dL (0.7-1.2); ESTIMATED GFR > 60; GLUCOSE 121 mg/dL (70-104); POTASSIUM 2.9 mmol/L (3.5-5.1); SODIUM 135 mmol/L (136-145); TCO2 27 mmol/L (25-35)
[2019-03-28 08:08] LABS: BASO# 0.08 X1000 (0.0-0.2); EOS# 0.65 X1000 (0.0-0.7); HEMATOCRIT 33.6 % (42.0-52.0); HEMOGLOBIN 10.5 g/dL (14.0-18.0); IMM GRAN# 0.03 X1000 (0.0-0.04); IMM GRAN% 0.4 % (0.0-0.5); LYMPH% 27.1 % (20.5-51.1); MCH 26.9 PG (27-31); MCHC 31.3 g/dL (33-37); MCV 85.9 FL (81-99); MONO# 0.85 X1000 (0.11-0.59); MONO% 10.5 % (1.7-9.3); MPV 9.8 FL (7.4-10.4); NEUT# 4.31 X1000 (1.4-6.5); PLT 286 X1000 (130-400); RBC 3.91 XMIL (4.7-6.1); WBC 8.12 X1000 (4.8-10.8)
[2019-03-28 08:32] LABS: SED RATE 70 mm/hr (0-15)
[2019-03-28] MEDS: PRILOSEC PO SCH (08:47)
[2019-03-28] MEDS: FLEXERIL PO SCH ×2 (08:47→13:02)
[2019-03-28] MEDS: ALDACTONE PO SCH (08:47)
[2019-03-28] MEDS: IMDUR PO SCH (08:47)
[2019-03-28] MEDS: COZAAR PO SCH (08:47)
[2019-03-28] MEDS: FLOMAX PO SCH (08:47)
[2019-03-28] MEDS: ROCEPHIN 1 GM in NS 50 ML IV SCH (08:51)
[2019-03-28] MEDS: NEURONTIN PO SCH (08:51)
[2019-03-28] MEDS: LASIX PO SCH (08:51)
[2019-03-28] MEDS: AMARYL PO SCH (08:51)
[2019-03-28] MEDS: APRESOLINE PO SCH (08:51)
[2019-03-28] MEDS: COLCRYS PO SCH (08:51)
[2019-03-28] MEDS: LEXAPRO PO SCH (08:51)
[2019-03-28] MEDS: COREG PO SCH (08:52)
[2019-03-28] MEDS: XARELTO PO SCH (08:52)
[2019-03-28] MEDS ORDERED: KLOR-CON PO SCH (09:00)
[2019-03-28] MEDS ORDERED: VANCOMYCIN 2,000 MG in NS 500 ML IV SCH (10:00)
[2019-03-28 11:04] VITALS: BP 150/99
[2019-03-28] MEDS ORDERED: FLU VACCINE IM ONE (15:03)
--- NOTE | 2019-03-29 05:32 | DISCHARGE SUMMARY ---
ADMISSION DATE: 03/28/2019 DISCHARGE DATE: 03/28/2019 ASSESSMENT: 1. Right elbow pain thought primarily related to gout. 2. Cellulitis lower extremities. 3. Chronic venous insufficiency lower extremities. 4. Morbid obesity. 5. Type 2 diabetes mellitus. 6. Hypertension. 7. Paroxysmal atrial fibrillation on chronic anticoagulation. 8. Chronic back pain on chronic pain medications per pain clinic. 9. Depression. PROCEDURES: 1. Right elbow x-ray and moderate degenerative osteoarthritic changes noted. No fracture or dislocation. REASON FOR ADMISSION AND HOSPITAL COURSE: The patient is a 58-year-old white male followed in my medical practice. He suffers from morbid obesity, type 2 diabetes mellitus, CHF, COPD, hypertension, and came into the emergency room with profound pain at the right elbow for 2 days. He was noted to have some redness and tenderness about the right elbow. X-rays showed some degenerative changes but otherwise negative. Uric acid level was 10. He was placed on Colcrys and given IV Dilaudid for pain control. He is on chronic narcotic pain medicines for pain clinic, and those were held during the hospitalization. White count on admission was 12,000 and that defervesced with antibiotics of Rocephin and vancomycin IV down to 8 by discharge. He also had some redness and very prominent over the lower extremities which is chronic. He has been followed in the past by Dr. Greer in regard to cellulitis of his legs and scrotum. The patient had elevated sedimentation rate of 63 and 70. His CRP was elevated and his uric acid level was elevated at 10. Over the next 3 days with the treatment with the Colcrys, his range of motion at the right elbow improved markedly, and redness and warmth improved. We monitored him. His blood sugar on his home medications, and that remained in the 100s. Creatinine was 1.2. Potassium did drop to 2.9, and we placed him on 40 mEq twice a day of potassium for that whereas normally he is on 24 mEq b.i.d. at home. He remained on his Lasix Aldactone, and Zaroxolyn during hospitalization. His CHF remained stable without complication. He was able to ambulate. He was eating well. His redness in his legs had decreased slightly. Warmth and redness at the right elbow had improved markedly, and he was moving his arm normally by discharge. It was felt he could be discharged to follow up in my office in 5 days. DISCHARGE MEDICATIONS: 1. Tylenol p.r.n. 2. Coreg 25 mg p.o. b.i.d. 3. Colcrys 0.6 mg p.o. b.i.d. 4. Flexeril 10 mg p.o. t.i.d. 5. Lexapro 20 mg p.o. daily. 6. Lasix 80 mg p.o. b.i.d. 7. Neurontin 800 mg p.o. daily. 8. Amaryl 4 mg p.o. daily with breakfast. 9. Flexeril 10 mg p.o. t.i.d. 10. Flomax 0.4 mg p.o. daily. 11. Omeprazole 40 mg p.o. daily. 12. Xarelto 20 mg p.o. daily. 13. Maxalt 10 mg p.o. daily p.r.n. migraine. 14. Advair 500/50 one puff b.i.d. 15. Hydralazine 25 mg p.o. b.i.d. 16. Cozaar 25 mg p.o. daily. 17. Zaroxolyn 5 mg p.o. daily 30 minutes prior to morning Lasix. 18. KCl 40 mEq p.o. daily for 4 days, then go back to 8 mEq 3 p.o. b.i.d. thereafter. 19. Aldactone 25 mg p.o. every morning. 20. Imdur 30 mg p.o. every morning. 21. Keflex 500 mg p.o. t.i.d. to complete 3 week course. 22. Doxycycline 100 mg p.o. b.i.d. to complete a 3 week course. FOLLOW UP: He will follow up in my office in 5 days. We will repeat CBC, sedimentation rate, CRP, BMP, and magnesium at that time. DISCHARGE EXAMINATION: CV: Irregularly irregular. Lungs: Clear. Abdomen: Morbid obesity. Distended, nontender. Extremities: Large legs. No major edema. The legs have prominent redness over the mid to distal shins bilaterally. Right elbow is without significant warmth, swelling or tenderness. There is mild tenderness to palpation. Much improved range of motion, which is now normal at the right elbow. Neurologic: Cranial nerves are intact. No focal deficits. LABORATORY: Blood cultures x2 at discharge were negative. cc: Yusef Gonzalez MD
== END 2019-03-28 15:30 | disposition home or self-care (01) | DRG 554 ==
LOC: ED 00:40 → 3N 00:40 → SUATTDRO 07:28
PROVIDERS: ADMIT Family Medicine; ATTEND Family Medicine